=== PATIENT | male | born 1950 | race Caucasian/White ===

== ENCOUNTER 2017-06-25 05:42 | Inpatient (IN) | payer MEDICARE ==
[~2017-06-25] VITALS: Ht 188 cm; Wt 87.9 kg
[~2017-06-25 05:42] MED LIST: ADVA250A INH; AMLO10CA PO; INDA2.5T PO; TIOT1AER2 INH; ZANT150T2 PO
[2017-06-25] MEDS ORDERED: POVIDONE IODINE 5% (ANTISEPSIS KIT) 4 APPLICATIONS EACH NARE PRN (06:30)
[2017-06-25] MEDS ORDERED: METOPROLOL TARTRATE 25 MG TAB PO PRN (06:30)
[2017-06-25] MEDS ORDERED: ceFAZolin 2 GM PREMIX 50 ML IV SCH (06:30)
[2017-06-25] MEDS ORDERED: LACTATED RINGER'S 1000 ML IV PRN (06:30)
[2017-06-25] MEDS ORDERED: INSULIN HUMAN REGULAR 1,000 UNITS/10 ML VIAL SQ PRN (06:30)
[2017-06-25] MEDS ORDERED: CHLORHEXIDINE GLUCONATE 2 % 1 PACK (2 CLOTHS) TOPICAL PRN (06:30)
[2017-06-25] MEDS ORDERED: SODIUM CHLORID 0.9% 500 ML IV PRN (06:30)
[2017-06-25 07:05] LABS: AUTOMATED NEUTROPHIL # 5.5 TH/MM3 (1.8-7.7); BASOPHIL # 0.1 TH/MM3 (0-0.2); BASOPHIL % 0.9 % (0.0-2.0); EOSINOPHIL # 0.1 TH/MM3 (0-0.4); EOSINOPHIL % 1.6 % (0.0-4.0); HEMATOCRIT 44.3 % (39.0-51.0); HEMO FLAGS DIFF FINAL; LYMPH % 32.6 % (9.0-44.0); LYMPHOCYTE # 3.1 TH/MM3 (1.0-4.8); MEAN CELL VOLUME 92.6 FL (80.0-100.0); MEAN CORPUSCULAR HEMOGLOBIN 31.8 PG (27.0-34.0); MEAN CORPUSCULAR HGB CONC 34.3 % (32.0-36.0); MONO % 6.4 % (0.0-8.0); NEUT % 58.5 % (16.0-70.0); PLATELET COUNT 269 TH/MM3 (150-450); RED BLOOD COUNT 4.78 MIL/MM3 (4.50-5.90); RED CELL DISTRIBUTION WIDTH 13.4 % (11.6-17.2); WHITE BLOOD COUNT 9.4 TH/MM3 (4.0-11.0)
[2017-06-25 07:21] LABS: PROTHROMBIN TIME - PATIENT 11.4 SEC (9.8-11.6)
[2017-06-25 07:26] LABS: APTT (PATIENT) 25.4 SEC (24.3-30.1)
--- NOTE | 2017-06-25 09:53 | EKG ---
Date Performed: 06/25/2017 Time Performed: 06:25:57 PTAGE: 67 years EKG: Sinus rhythm NORMAL ECG NO PREVIOUS TRACING DOCTOR: Arie Castellanos Interpretating Date/Time 06/25/2017 09:51:44
[2017-06-25] MEDS ORDERED: ACETAMINOPHEN 1000 MG/100 ML 100 ML IV ONE (10:18)
[2017-06-25] MEDS ORDERED: ceFAZolin INJ 1,000 MG VIAL IV ONE ×4 (10:50→11:04)
[2017-06-25] MEDS ORDERED: ePHEDrine/NS 25 MG/5 ML SYR IV ONE (12:00)
[2017-06-25] MEDS ORDERED: GLYCOPYRROLATE 1 MG/5 ML SYRINGE IV PUSH ONE (12:00)
[2017-06-25] MEDS ORDERED: MORPHINE SULFATE 4 MG/ML INJ IV ONE (12:00)
[2017-06-25] MEDS ORDERED: LACTATED RINGER'S 1000 ML INJ 1,000 ML IV ONE (12:00)
[2017-06-25] MEDS ORDERED: PROPOFOL 200 MG/20 ML AMP IV ONE (12:00)
[2017-06-25] MEDS ORDERED: SODIUM CHLORID 0.9% 500 ML INJ 500 ML IV ONE (12:00)
[2017-06-25] MEDS ORDERED: NORMOSOL R INJ 1,000 ML IV ONE (12:00)
[2017-06-25] MEDS ORDERED: VECURONIUM BROMIDE 20 MG VIAL IV ONE (12:00)
[2017-06-25] MEDS: PANTOPRAZOLE SODIUM 40 MG VIAL IV PUSH SCH (12:00)
[2017-06-25] MEDS ORDERED: ONDANSETRON HCL 4 MG/2 ML VIAL IV PUSH ONE (12:00)
[2017-06-25] MEDS ORDERED: SODIUM CHLORIDE 0.9% 20 ML VIAL IV ONE (12:00)
[2017-06-25] MEDS ORDERED: LIDOCAINE HCL 1% PF 5 ML AMPULE OTHER ONE (12:00)
[2017-06-25] MEDS ORDERED: NEOSTIGMINE 3 MG/3 ML SYR IV ONE (12:00)
[2017-06-25] MEDS ORDERED: ceFAZolin 1 GM ADDVANTAGE VIAL IV ONE (12:00)
[2017-06-25] MEDS ORDERED: *morphine SULFATE 8 MG/ML PERIprocedure ONLY ONE ×3 (12:14→12:31)
[2017-06-25] MEDS: SODIUM CHLOR 0.9% 1000 ML INJ 1,000 ML IV SCH ×2 (12:25→20:00)
[2017-06-25 12:38] LABS: AUTOMATED NEUTROPHIL # 16.1 TH/MM3 (1.8-7.7); BASOPHIL % 0.1 % (0.0-2.0); EOSINOPHIL % 0.2 % (0.0-4.0); HEMATOCRIT 37.4 % (39.0-51.0); LYMPH % 9.7 % (9.0-44.0); LYMPHOCYTE # 1.8 TH/MM3 (1.0-4.8); MEAN CELL VOLUME 93.3 FL (80.0-100.0); MEAN CORPUSCULAR HEMOGLOBIN 31.3 PG (27.0-34.0); MEAN CORPUSCULAR HGB CONC 33.5 % (32.0-36.0); MONO % 5.3 % (0.0-8.0); NEUT % 84.7 % (16.0-70.0); PLATELET COUNT 240 TH/MM3 (150-450); RED BLOOD COUNT 4.01 MIL/MM3 (4.50-5.90); RED CELL DISTRIBUTION WIDTH 13.3 % (11.6-17.2)
[2017-06-25 12:47] LABS: HEMO FLAGS AUTO DIFF
--- NOTE | 2017-06-25 12:55 | MP ---
cc: STEVEN LARSON MD DATE OF SURGERY: 06/25/2017 PREOPERATIVE DIAGNOSIS Left solid 6 cm renal mass. POSTOPERATIVE DIAGNOSIS Left solid 6 cm renal mass. PROCEDURE PERFORMED Robotic-assisted laparoscopic left radical nephrectomy. SURGEON Steven Larson MD ANESTHESIA General. COMPLICATIONS Splenic laceration. ANESTHESIA General. BLOOD LOSS 200 mL. FLUIDS Crystalloids, per anesthesia. SPECIMENS Left kidney for permanent. DISPOSITION Stable to recovery. INDICATIONS The patient is a 67-year-old male who was found to have incidental left renal mass. Treatment options were discussed and he elected to proceed with laparoscopic removal of the left kidney mass. Metastatic workup was negative. The risks, benefits and alternatives were explained to the patient and the patient wished to proceed and informed consent was obtained. DETAILS OF PROCEDURE The patient was properly identified, brought back to the operating room and placed supine on the operating table. Appropriate timeout was performed. Under direction of anesthesiology the patient was intubated, induced under general anesthetic. Preop antibiotics in the form of Ancef 2 grams IV were given within 1 hour of the start of procedure. Patient was then placed in right lateral decubitus position with left side up. All pressure points were padded. Prior to positioning a Samuels catheter was inserted without difficulty. Once the patient was in the right lateral decubitus position the patient was prepped and draped in normal sterile surgical fashion. Superior and lateral umbilicus stab incision was made and Veress needle was then used to gain entrance into the abdominal cavity. Insufflation was achieved to 15 mmHg. The stab incision was extended with 15 blade scalpel. Under direct visualization the camera port was then placed in the abdominal cavity. There was no evidence of intra-abdominal injury including bleeding. There was some anterior abdominal wall adhesions up near the spleen. Four other ports were then placed under direct visualization, two 8 mm robotic circulation assistant ports which were triangulated off of the camera port as well as 12 mm assist ports along the midline, one superior and one inferior to the umbilicus. At this time the robot was then brought into position. The anterior abdominal adhesions were taken down carefully. At this time the white line of Toldt was then taken down and the colon was retracted medially to expose the retroperitoneum. The patient had minimal fat around the kidney itself. The mesentery was carefully dissected off of the kidney to further expose the retroperitoneum. The gonadal vein and ureter were easily identified inferiorly. I developed a plane between the ureter and the psoas muscle. With blunt dissection I carefully marched superiorly up the psoas muscle while natalia the kidney anteriorly. As I marched cephalad I came across a renal vein. On CT scan it appeared he had two renal veins. This appeared to be the first branch. It was dissected circumferentially and taken with endovascular GI stapler. I further marched cephalad up to the psoas muscle towards the hilum. At this time I came across multiple other renal vessels, two other renal veins and two other renal arteries were discovered, each one was dissected out circumferentially. The second renal vein was divided with the endovascular GI stapler after being carefully dissected. This helped further free the kidney itself. At this time the one branch of the renal artery was next divided with the endovascular GI stapler. At this time it appeared he had only one main renal vein left. Again, this was carefully dissected and taken with endovascular GI stapler. However, there was significant amount of tissue posterior to the kidney that was tethering the kidney to the posterior abdominal wall. With blunt dissection with the robotic vessel sealer I did discover a second artery. Once this was dissected circumferentially this was divided with endovascular GI stapler. At this point there were no remaining vessels. The lateral and superior portions of the renal attachments including the ___ were then taken with electrocautery and blunt dissection. At this point the kidney was completely freed except for the gonadal vein and ureter inferiorly, these were sealed across with the robotic vessel sealer. At this point the left kidney was completely free. It was placed in a 15 EndoCatch bag for later removal. The renal hilum and kidney bed were irrigated out. Insufflation was brought down to 7 mmHg. There was no evidence of any bleeding. 3 grams of Antonia were then carefully applied. As I carefully inspected the bed I did notice some bleeding superiorly near the spleen. As I carefully examined I had seen that there was a small 1 cm splenic laceration on the anterior portion of the spleen, likely caused from my second robotic arm. Surgicel was then applied for 5 minutes for pressure, this did slow the bleeding. At this point I decided to place ___ over the splenic laceration as well and held pressure for 3 minutes. This seemed to control the bleeding from the spleen. No other bleeding was seen. At this point we then undocked the robot. The right robotic 8 mm port incision was extended. The kidney was extracted through this incision. During extraction the epigastric vessels were divided. These were controlled with Hem-o-alphonso clips. Once the kidney was out the wound appeared to be dry. The perineum was closed with a running 3-0 Vicryl. Fascia was closed with running 1-0 PDS. I then re-insufflated the abdomen to perform a second look. The spleen itself appeared to be dry, there appeared to be no evidence of any other bleeding. The underside of the incision appeared to be free of bowel. At this time all ports were removed under direct visualization. The skin incisions were closed with 4-0 Monocryl. Sponge and needle count was correct at the end of the case. The patient was extubated and sent to recovery in stable condition. He will be admitted for routine postoperative care. MD ELLY Ball/RAMANDEEP /11:23 AM /12:06 PM MARIO ALBERTO
[2017-06-25] MEDS ORDERED: DO NOT ADM ANY ANTICOAGULANT DRUGS PRN (13:00)
--- NOTE | 2017-06-25 13:00 | RADRPT ---
EXAM DATE/TIME: 06/25/2017 12:20 [facility] COMPARISON: No previous studies available for comparison. INDICATIONS : Central line placement. MEDICAL HISTORY : None. SURGICAL HISTORY : None. ENCOUNTER: Initial ACUITY: 1 day PAIN SCORE: 0/10 LOCATION: Bilateral chest FINDINGS: A single view of the chest demonstrates the lungs to be symmetrically aerated without evidence of mas s, infiltrate or effusion. The cardiomediastinal contours are unremarkable. Osseous structures are intact. CONCLUSION: No acute disease. Right jugular central line with tip in the SVC and no pneumothorax. Josef Basurto MD on June 25, 2017 at 12:57 Board Certified Radiologist. This report was verified electronically.
[2017-06-25 13:01] LABS: BICARBONATE 24.3 MEQ/L (21.0-32.0); POTASSIUM 3.6 MEQ/L (3.5-5.1)
[2017-06-25 13:40] LABS: SCAN/DIFF AUTO DIFF CONFIRMED
[2017-06-25] MEDS: ACETAMINOPHEN 1000 MG/100 ML 100 ML IV SCH ×2 (15:41→21:38)
[2017-06-25 16:00] VITALS: BP 102/60; PULSE 67; RESP 18; TEMP 96.2; O2SAT 97
--- NOTE | 2017-06-25 17:28 | PD.CONS ---
History of Present Illness Service primary care Consult Requested By Reason for Consult medical management Primary Care Physician Tony Thibodeaux DO Diagnoses: Review of Systems Musculoskeletal: COMPLAINS OF: Back pain Past Family Social History Allergies: Coded Allergies: No Known Allergies (Unverified , 06/24/17) Past Medical History hypertension copd Past Surgical History none Reported Medications Reported Meds & Active Scripts Active Reported Zantac (Ranitidine HCl) 150 Mg Tab 150 Mg PO DAILY PRN Indapamide 2.5 Mg Tab 2.5 Mg PO DAILY Amlodipine-Benazepril 10-20 Mg Cap 1 Cap PO DAILY Advair Diskus Inh (Fluticasone-Salmeterol Inh) 250-50 Mcg/Blist Aer 1 Puff INH BID Rinse mouth after use. Spiriva Respimat Inh (Tiotropium Inh) 1.25 Mcg/Act Aero 2 Puff INH DAILY 1.25 mcg = 1 inhalation Active Ordered Medications Inpatient Medications Acetaminophen 100 ml @ 400 mls/hr Q6H IV Last administered on 06/25/17 15:41 ; Start 06/25/17 at 16:00 Amlodipine Besylate (Norvasc) 10 mg DAILY PO ; Start 06/26/17 at 09:00 Budesonide/ Formoterol Fumarate (Symbicort 160-4.5 Inh) 2 puff BID INH ; Start 06/25/17 at 21:00 Cefazolin Sodium (Ancef Inj) 1,000 mg ONCE ONCE IV Last administered on 10:40; Start 06/25/17 at 10:50; Stop 06/25/17 at 11:03; Status DC Cefazolin Sodium 1000 mg/Sodium Chloride 100 ml @ 200 mls/hr Q8H IV ; Start at 18:00 Cefazolin Sodium/ Dextrose 50 ml @ 100 mls/hr RAILCAR SWITCHER IV Last administered on 06/25/17 06:42; Start 06/25/17 at 06:30; Stop 06/28/17 at 06:29 Chlorhexidine Gluconate (Chlorhexidine 2% Cloth) 3 pack RAILCAR SWITCHER PRN TOPICAL SEE LABEL COMMENTS Last administered on 06/25/17 06:00; Start 06/25/17 at 06:30 ; Stop 06/28/17 at 06:29 Docusate Sodium (Colace) 100 mg BID PO ; Start 06/25/17 at 21:00 Indapamide (Lozol) 2.5 mg DAILY PO ; Start 06/26/17 at 09:00 Insulin Human Regular (NovoLIN R INJ) See Protocol Table ... RAILCAR SWITCHER PRN SQ SEE PROTOCOL TABLE; Start 06/25/17 at 06:30; Stop 06/28/17 at 06:29 Lactated Ringer's 1,000 ml @ 30 mls/hr Q24H PRN IV SEE LABEL COMMENTS Last administered on 06/25/17 06:40; Start 06/25/17 at 06:30; Stop 06/28/17 at 06:29 Lisinopril (Prinivil) 20 mg DAILY PO ; Start 06/26/17 at 09:00 Metoprolol Tartrate (Lopressor) 25 mg RAILCAR SWITCHER PRN PO SEE LABEL COMMENTS; Start 06/25/17 at 06:30; Stop 06/28/17 at 06:29 Miscellaneous Information ALL NURSING DEPARTME... UNSCH PRN .XX SEE LABEL COMMENTS; Start 06/25/17 at 13:00; Stop 06/26/17 at 12:59 Morphine Sulfate (Morphine Inj) 4 mg Q3H PRN IV PUSH BREAKTHROUGH PAIN; Start 06/25/17 at 11:30 Ondansetron HCl (Zofran Inj) 4 mg Q6HR PRN IV PUSH NAUSEA; Start 06/25/17 at 11 :30 Oxycodone HCl (Roxicodone) 5 mg Q4H PRN PO PAIN SCALE 4 TO 6; Start 06/25/17 at 11:30 Pantoprazole Sodium (Protonix Inj) 40 mg Q24H IV PUSH Last administered on 06/25 12:00; Start 06/25/17 at 12:00 Patient Own Medication PT OWN MED: SPIR... DAILY INH ; Start 06/26/17 at 09:00; Status Future Hold Povidone Iodine (Betadine 5% Antisepsis Kit) 1 applic RAILCAR SWITCHER PRN EACH NARE SEE LABEL COMMENTS Last administered on 06/25/17 06:45; Start 06/25/17 at 06:30 ; Stop 06/28/17 at 06:29 Sodium Chloride 1,000 ml @ 125 mls/hr Q8H IV Last administered on 06/25/17 12 :25; Start 06/25/17 at 12:00 Family History both parents are in old age Social History non smoker occ drinker Physical Exam Vital Signs Vital Signs Date Time Temp Pulse Resp B/P (MAP) Pulse Ox O2 Delivery O2 Flow Rate FiO2 06/25/17 16:00 96.2 67 18 102/60 (74) 97 06/25/17 14:00 72 16 101/63 (76) 100 Nasal Cannula 2 06/25/17 13:00 67 16 104/57 (73) 100 Nasal Cannula 2 06/25/17 12:30 65 16 108/65 (79) 100 Nasal Cannula 2 06/25/17 12:15 65 16 115/70 (85) 100 Nasal Cannula 2 06/25/17 12:00 96.9 77 16 116/71 (86) 100 Nasal Cannula 2 06/25/17 06:49 98.6 73 18 140/88 (105) 97 Physical Exam GENERAL: This is a well-nourished, well-developed patient, in no apparent distress. SKIN: No rashes, ecchymoses or lesions. Cool and dry. HEAD: Atraumatic. Normocephalic. No temporal or scalp tenderness. EYES: Pupils equal round and reactive. Extraocular motions intact. No scleral icterus. No injection or drainage. ENT: Nose without bleeding, purulent drainage or septal hematoma. Throat without erythema, tonsillar hypertrophy or exudate. Uvula midline. Airway patent. NECK: Trachea midline. No JVD or lymphadenopathy. Supple, nontender, no meningeal signs. CARDIOVASCULAR: Regular rate and rhythm without murmurs, gallops, or rubs. RESPIRATORY: Clear to auscultation. Breath sounds equal bilaterally. No wheezes , rales, or rhonchi. GASTROINTESTINAL: Abdomen soft, recent LLQ incision with multiple stab wounds present. MUSCULOSKELETAL: Extremities without clubbing, cyanosis, or edema. No joint tenderness, effusion, or edema noted. No calf tenderness. Negative Homans sign bilaterally. NEUROLOGICAL: Awake and alert. Cranial nerves II through XII intact. Motor and sensory grossly within normal limits. Five out of 5 muscle strength in all muscle groups. Normal speech. Laboratory Laboratory Tests Test 06/25/17 06:36 06/25/17 12:07 White Blood Count 9.4 19.0 Red Blood Count 4.78 4.01 Hemoglobin 15.2 12.5 Hematocrit 44.3 37.4 Mean Corpuscular Volume 92.6 93.3 Mean Corpuscular Hemoglobin 31.8 31.3 Mean Corpuscular Hemoglobin Concent 34.3 33.5 Red Cell Distribution Width 13.4 13.3 Platelet Count 269 240 Mean Platelet Volume 7.5 7.2 Neutrophils (%) (Auto) 58.5 84.7 Lymphocytes (%) (Auto) 32.6 9.7 Monocytes (%) (Auto) 6.4 5.3 Eosinophils (%) (Auto) 1.6 0.2 Basophils (%) (Auto) 0.9 0.1 Neutrophils # (Auto) 5.5 16.1 Lymphocytes # (Auto) 3.1 1.8 Monocytes # (Auto) 0.6 1.0 Eosinophils # (Auto) 0.1 0.0 Basophils # (Auto) 0.1 0.0 CBC Comment DIFF FINAL AUTO DIFF Differential Comment AUTO DIFF CONFIRMED Prothrombin Time 11.4 Prothromb Time International Ratio 1.0 Activated Partial Thromboplast Time 25.4 Blood Urea Nitrogen 15 Creatinine 1.42 Random Glucose 118 Calcium Level 8.3 Sodium Level 138 Potassium Level 3.6 Chloride Level 101 Carbon Dioxide Level 24.3 Anion Gap 13 Estimat Glomerular Filtration Rate 50 Result Diagram: 06/25/17 1207 06/25/17 1207 Imaging Last 72 hours Impressions Chest X-Ray 06/25/17 0000 Signed Impressions: Service Date/Time: Sunday, June 25, 2017 12:20 - CONCLUSION: No acute disease. Right jugular central line with tip in the SVC and no pneumothorax. Josef Basurto MD Course pt returns from l nephrectomy today Assessment and Plan Assessment and Plan l nephrectomy hypertenaion copd Discussed Condition With patieent Discharge Planning home ThibodeauxTonyLynette ALAS Jun 25, 2017 17:28
[2017-06-25] MEDS: ONDANSETRON HCL 4 MG/2 ML VIAL IV PUSH PRN (18:14)
[2017-06-25 20:24] VITALS: BP 111/65; PULSE 58; RESP 18; TEMP 95.6; O2SAT 94
[2017-06-25] MEDS: BUDESONIDE-FORMOTEROL 160/4.5 MCG INHALER INH SCH (20:30)
[2017-06-25] MEDS: DOCUSATE SODIUM 100 MG CAP PO SCH (20:32)
[2017-06-26] VITALS (9 sets, daily range): BP systolic 78–122; BP diastolic 51–65; PULSE 60–82; RESP 16–22; TEMP 96.7–98.3; O2SAT 92–97
[2017-06-26] MEDS: ACETAMINOPHEN 1000 MG/100 ML 100 ML IV SCH ×2 (04:08→08:05)
[2017-06-26] MEDS: SODIUM CHLOR 0.9% 1000 ML INJ 1,000 ML IV SCH ×5 (04:08→19:24)
[2017-06-26] MEDS: ONDANSETRON HCL 4 MG/2 ML VIAL IV PUSH PRN (07:52)
[2017-06-26] MEDS: INDAPAMIDE 2.5 MG TAB PO SCH (07:56)
[2017-06-26] MEDS: LISINOPRIL 20 MG TAB PO SCH (07:57)
[2017-06-26] MEDS: DOCUSATE SODIUM 100 MG CAP PO SCH ×2 (07:58→19:24)
[2017-06-26] MEDS: BUDESONIDE-FORMOTEROL 160/4.5 MCG INHALER INH SCH ×2 (08:04→19:25)
[2017-06-26 08:06] LABS: HEMATOCRIT 35.4 % (39.0-51.0); MEAN CELL VOLUME 93.2 FL (80.0-100.0); MEAN CORPUSCULAR HEMOGLOBIN 31.7 PG (27.0-34.0); PLATELET COUNT 181 TH/MM3 (150-450); RED CELL DISTRIBUTION WIDTH 13.2 % (11.6-17.2); REVIEW FLAG FINAL; WHITE BLOOD COUNT 7.8 TH/MM3 (4.0-11.0)
[2017-06-26 08:28] LABS: BICARBONATE 30.2 MEQ/L (21.0-32.0); POTASSIUM 3.4 MEQ/L (3.5-5.1)
[2017-06-26] MEDS ORDERED: SPIRIVA RESPIMAT INH SCH (09:00)
--- NOTE | 2017-06-26 09:52 | HHI.PR ---
Subjective Remarks S/P Robot assisted laparoscopic left nephrectomy for solid renal mass. He C/O pain meds made him "feel funny" and wants to try something different. Objective Vital Signs Date Time Temp Pulse Resp B/P (MAP) Pulse Ox O2 Delivery O2 Flow Rate FiO2 06/26/17 08:00 98.1 71 19 108/59 (75) 95 06/26/17 07:45 98.1 71 16 108/59 (75) 97 06/26/17 02:05 18 06/26/17 00:56 97.0 71 16 107/56 (73) 96 06/25/17 20:24 95.6 58 18 111/65 (80) 94 06/25/17 16:00 96.2 67 18 102/60 (74) 97 06/25/17 14:00 72 16 101/63 (76) 100 Nasal Cannula 2 06/25/17 13:00 67 16 104/57 (73) 100 Nasal Cannula 2 06/25/17 12:30 65 16 108/65 (79) 100 Nasal Cannula 2 06/25/17 12:15 65 16 115/70 (85) 100 Nasal Cannula 2 06/25/17 12:00 96.9 77 16 116/71 (86) 100 Nasal Cannula 2 I/O 06/25/17 06/25/17 06/25/17 06/26/17 06/26/17 06/26/17 07:00 15:00 23:00 07:00 15:00 23:00 Intake Total 1750 ml 300 ml 1200 ml Output Total 400 ml 1600 ml Balance 1350 ml 300 ml -400 ml Intake Oral 0 ml IV Total 50 ml 300 ml 1200 ml Other 1700 ml Output Urine Total 200 ml 1600 ml Other 200 ml Result Diagram: 06/26/1715 06/26/1715 Imaging Last 48 hours Impressions Chest X-Ray 06/25/17 0000 Signed Impressions: Service Date/Time: Sunday, June 25, 2017 12:20 - CONCLUSION: No acute disease. Right jugular central line with tip in the SVC and no pneumothorax. Josef Basurto MD Procedures Left nephrectomy Objective Remarks GEN - alert and oriented HEENT - AT LA Rersp - CTA CV - RRR without m/r/g. No peripheral edema Abd - active BS and laparoscopic incisions are intake without D/C Neuro - Alert and oriented without deficits Medications and IVs Current Medications Medications (Trade) Dose Ordered Sig/Galina Route Start Time Stop Time Status Last Admin Lactated Ringer's 1,000 ml @ 30 mls/hr Q24H PRN IV 06/25/17 06:30 06/28/17 06:29 06/25/17 06:40 Sodium Chloride 500 ml @ 30 mls/hr [id number] PRN IV 06/25/17 06:30 06/28/17 06:29 (Lopressor) 25 mg EYELET OPERATOR PRN PO 06/25/17 06:30 06/28/17 06:29 (Betadine 5% Antisepsis Kit) 1 applic EYELET OPERATOR PRN EACH NARE 06/25/17 06:30 06/28/17 06:29 06/25/17 06:45 (Chlorhexidine 2% Cloth) 3 pack EYELET OPERATOR PRN TOPICAL 06/25/17 06:30 06/28/17 06:29 06/25/17 06:00 (NovoLIN R INJ) See Protocol Table ... EYELET OPERATOR PRN SQ 06/25/17 06:30 06/28/17 06:29 Cefazolin Sodium/ Dextrose 50 ml @ 100 mls/hr EYELET OPERATOR IV 06/25/17 06:30 06/28/17 06:29 06/25/17 06:42 Sodium Chloride 1,000 ml @ 125 mls/hr Q8H IV 06/25/17 12:00 06/26/17 04:08 (Roxicodone) 10 mg Q4H PRN PO 06/25/17 12:00 06/26/17 01:05 (Roxicodone) 5 mg Q4H PRN PO 06/25/17 11:30 Acetaminophen 100 ml @ 400 mls/hr Q6H IV 06/25/17 16:00 06/26/17 08:05 (Protonix Inj) 40 mg Q24H IV PUSH 06/25/17 12:00 06/25/17 12:00 (Zofran Inj) 4 mg Q6HR PRN IV PUSH 06/25/17 11:30 06/26/17 07:52 (Morphine Inj) 4 mg Q3H PRN IV PUSH 06/25/17 11:30 Cefazolin Sodium 1000 mg/Sodium Chloride 100 ml @ 200 mls/hr Q8H IV 06/25/17 18:00 06/26/17 09:13 (Lozol) 2.5 mg DAILY PO 06/26/17 09:00 (Norvasc) 10 mg DAILY PO 06/26/17 09:00 (Symbicort 160-4.5 Inh) 2 puff BID INH 06/25/17 21:00 06/26/17 08:04 Patient Own Medication PT OWN MED: SPIR... DAILY INH 06/26/17 09:00 Future Hold (Colace) 100 mg BID PO 06/25/17 21:00 06/25/17 20:32 (Prinivil) 20 mg DAILY PO 06/26/17 09:00 Miscellaneous Information ALL NURSING DEPARTME... UNSCH PRN .XX 06/25/17 13:00 06/26/17 12:59 Assessment and Plan Problem List: (1) Renal mass, left ICD Codes: N28.89 - Other specified disorders of kidney and ureter Status: Acute Plan: Now S/P left nephrectomy (2) Hypertension ICD Codes: I10 - Essential (primary) hypertension Status: Chronic Plan: Cont home meds and monitor (3) COPD (chronic obstructive pulmonary disease) ICD Codes: J44.9 - Chronic obstructive pulmonary disease, unspecified Status: Chronic Plan: Cont home meds and monitor Assessment and Plan S/P left nephrectomy - F/U renal function HTN - Cont home meds and monitor COPD - Cont home meds and monitor Discharge Planning Home when cleared by surgery Problem Qualifiers (1) Hypertension: Qualified Codes: I10 - Essential (primary) hypertension (2) COPD (chronic obstructive pulmonary disease): Qualified Codes: J41.0 - Simple chronic bronchitis David Burnette Jun 26, 2017 09:52
[2017-06-26] MEDS ORDERED: traMADol HCL 50 MG TAB PO PRN ×2 (11:00→19:30)
[2017-06-26] MEDS: PANTOPRAZOLE SODIUM 40 MG VIAL IV PUSH SCH (11:39)
[2017-06-26] MEDS: MORPHINE SULFATE 4 MG/ML INJ IV PUSH PRN ×2 (14:25→17:56)
[2017-06-26] MEDS ORDERED: ACETAMINOPHEN/CODEINE 300 MG/30 MG TAB PO PRN (15:45)
--- NOTE | 2017-06-26 15:51 | HHI.PR ---
Subjective Patient symptoms today having issues getting pain under control. Could not tolerate Oxycodone. Tramadol not strong enough. Voiding on own. Denies flatus. Has appetite. Tolerating clears. Objective Vital Signs Vital Signs Date Time Temp Pulse Resp B/P (MAP) Pulse Ox O2 Delivery O2 Flow Rate FiO2 06/26/17 13:24 95 Nasal Cannula 2.00 06/26/17 12:00 97.3 72 17 112/60 (77) 94 06/26/17 10:50 97.3 72 17 112/60 (77) 94 06/26/17 10:00 96.7 63 80/53 (62) 93 06/26/17 10:00 96.7 60 78/51 (60) 92 06/26/17 08:00 98.1 71 19 108/59 (75) 95 06/26/17 07:45 98.1 71 16 108/59 (75) 97 06/26/17 02:05 18 06/26/17 00:56 97.0 71 16 107/56 (73) 96 06/25/17 20:24 95.6 58 18 111/65 (80) 94 06/25/17 16:00 96.2 67 18 102/60 (74) 97 Intake & Output 06/26/17 06/26/17 07:00 19:00 Intake Total 1300 ml 200 ml Output Total 1600 ml Balance -300 ml 200 ml IV Total 1300 ml 200 ml Output Urine Total 1600 ml Result Diagram: 06/26/1715 06/26/1715 Objective Remarks NAD. A/O x 3 RRR non labored respirations abd soft, ND, appropriately tender. No peritoneal signs. Ext NT no c/c/e Medications and IVs Current Medications Medications (Trade) Dose Ordered Sig/Galina Route Start Time Stop Time Status Last Admin Lactated Ringer's 1,000 ml @ 30 mls/hr Q24H PRN IV 06/25/17 06:30 06/28/17 06:29 06/25/17 06:40 Sodium Chloride 500 ml @ 30 mls/hr [id number] PRN IV 06/25/17 06:30 06/28/17 06:29 (Lopressor) 25 mg VOLTAGE INSPECTOR PRN PO 06/25/17 06:30 06/28/17 06:29 (Betadine 5% Antisepsis Kit) 1 applic VOLTAGE INSPECTOR PRN EACH NARE 06/25/17 06:30 06/28/17 06:29 06/25/17 06:45 (Chlorhexidine 2% Cloth) 3 pack VOLTAGE INSPECTOR PRN TOPICAL 06/25/17 06:30 06/28/17 06:29 06/25/17 06:00 (NovoLIN R INJ) See Protocol Table ... VOLTAGE INSPECTOR PRN SQ 06/25/17 06:30 06/28/17 06:29 Cefazolin Sodium/ Dextrose 50 ml @ 100 mls/hr VOLTAGE INSPECTOR IV 06/25/17 06:30 06/28/17 06:29 06/25/17 06:42 Sodium Chloride 1,000 ml @ 125 mls/hr Q8H IV 06/25/17 12:00 06/26/17 04:08 (Roxicodone) 10 mg Q4H PRN PO 06/25/17 12:00 06/26/17 01:05 (Roxicodone) 5 mg Q4H PRN PO 06/25/17 11:30 Acetaminophen 100 ml @ 400 mls/hr Q6H IV 06/25/17 16:00 06/26/17 08:05 (Protonix Inj) 40 mg Q24H IV PUSH 06/25/17 12:00 06/26/17 11:39 (Zofran Inj) 4 mg Q6HR PRN IV PUSH 06/25/17 11:30 06/26/17 07:52 (Morphine Inj) 4 mg Q3H PRN IV PUSH 06/25/17 11:30 06/26/17 14:25 Cefazolin Sodium 1000 mg/Sodium Chloride 100 ml @ 200 mls/hr Q8H IV 06/25/17 18:00 06/26/17 09:13 (Lozol) 2.5 mg DAILY PO 06/26/17 09:00 (Norvasc) 10 mg DAILY PO 06/26/17 09:00 (Symbicort 160-4.5 Inh) 2 puff BID INH 06/25/17 21:00 06/26/17 08:04 Patient Own Medication PT OWN MED: SPIR... DAILY INH 06/26/17 09:00 Future Hold (Colace) 100 mg BID PO 06/25/17 21:00 06/25/17 20:32 (Prinivil) 20 mg DAILY PO 06/26/17 09:00 (Ultram) 50 mg Q8HR PRN PO 06/26/17 11:00 06/26/17 12:24 Sodium Chloride 1,000 ml @ 125 mls/hr Q8H IV 06/26/17 10:00 06/26/17 11:04 Assessment and Plan Assessment and Plan POD #1 s/p Left Robotic Radical Nephrectomy -Tylenol #3 for pain -Hgb stable. -Advance diet -Creatinine up slightly as expected -Ambulate -GI/DVt prophylaxis -Appreciate Medicine input -possible d/c tomorrow Gaurav Louise MD Jun 26, 2017 15:51
[2017-06-26] MEDS ORDERED: diphenhydrAMINE HCL 25 MG CAP PO PRN (16:00)
[2017-06-26] MEDS: ACETAMINOPHEN/CODEINE 300 MG/30 MG TAB PO PRN (19:25)
[2017-06-27] VITALS: BP 128/70; PULSE 77; RESP 20; TEMP 98; O2SAT 96
[2017-06-27] MEDS: ACETAMINOPHEN/CODEINE 300 MG/30 MG TAB PO PRN ×4 (00:19→13:14)
[2017-06-27] MEDS: SODIUM CHLOR 0.9% 1000 ML INJ 1,000 ML IV SCH ×3 (02:00→09:08)
[2017-06-27 08:00] VITALS: BP 121/77; PULSE 75; RESP 12; TEMP 100.1; TEMP 98.9; O2SAT 92
[2017-06-27] MEDS: BUDESONIDE-FORMOTEROL 160/4.5 MCG INHALER INH SCH (09:05)
[2017-06-27] MEDS: INDAPAMIDE 2.5 MG TAB PO SCH (09:07)
[2017-06-27] MEDS: LISINOPRIL 20 MG TAB PO SCH (09:07)
[2017-06-27] MEDS: DOCUSATE SODIUM 100 MG CAP PO SCH (09:07)
--- NOTE | 2017-06-27 09:20 | HHI.PR ---
Subjective Remarks S/P Robot assisted laparoscopic left nephrectomy for solid renal mass. Now on Tylenol #3 with adequate pain control. Objective Vital Signs Date Time Temp Pulse Resp B/P (MAP) Pulse Ox O2 Delivery O2 Flow Rate FiO2 06/27/17 08:00 98.9 75 12 121/77 (92) 92 06/27/17 08:00 100.1 75 12 121/77 (92) 92 06/27/17 05:19 18 06/27/17 00:00 98.0 77 20 128/70 (89) 96 06/26/17 20:00 98.3 82 22 116/64 (81) 93 06/26/17 16:00 97.8 74 17 122/65 (84) 93 06/26/17 13:24 95 Nasal Cannula 2.00 06/26/17 12:00 97.3 72 17 112/60 (77) 94 06/26/17 10:50 97.3 72 17 112/60 (77) 94 06/26/17 10:00 96.7 63 80/53 (62) 93 06/26/17 10:00 96.7 60 78/51 (60) 92 I/O 06/26/17 06/26/17 06/26/17 06/27/17 06/27/17 06/27/17 07:00 15:00 23:00 07:00 15:00 23:00 Intake Total 1200 ml 200 ml 1580 ml 1580 ml Output Total 1600 ml 1200 ml 600 ml Balance -400 ml 200 ml 380 ml 980 ml Intake Oral 480 ml 480 ml IV Total 1200 ml 200 ml 1100 ml 1100 ml Output Urine Total 1600 ml 1200 ml 600 ml # Bowel Movements 0 0 Result Diagram: 06/26/1771406/26/17714 Procedures Left nephrectomy Objective Remarks GEN - alert and oriented HEENT - AT NC Rersp - CTA CV - RRR without m/r/g. No peripheral edema Abd - active BS and laparoscopic incisions are intake without D/C Neuro - Alert and oriented without deficits Medications and IVs Current Medications Medications (Trade) Dose Ordered Sig/Galina Route Start Time Stop Time Status Last Admin Lactated Ringer's 1,000 ml @ 30 mls/hr Q24H PRN IV 06/25/17 06:30 06/28/17 06:29 06/25/17 06:40 Sodium Chloride 500 ml @ 30 mls/hr [id number] PRN IV 06/25/17 06:30 06/28/17 06:29 (Lopressor) 25 mg TREAD BOOKER PRN PO 06/25/17 06:30 06/28/17 06:29 (Betadine 5% Antisepsis Kit) 1 applic TREAD BOOKER PRN EACH NARE 06/25/17 06:30 06/28/17 06:29 06/25/17 06:45 (Chlorhexidine 2% Cloth) 3 pack TREAD BOOKER PRN TOPICAL 06/25/17 06:30 06/28/17 06:29 06/25/17 06:00 (NovoLIN R INJ) See Protocol Table ... TREAD BOOKER PRN SQ 06/25/17 06:30 06/28/17 06:29 Cefazolin Sodium/ Dextrose 50 ml @ 100 mls/hr TREAD BOOKER IV 06/25/17 06:30 06/28/17 06:29 06/25/17 06:42 Sodium Chloride 1,000 ml @ 125 mls/hr Q8H IV 06/25/17 12:00 06/27/17 04:00 (Protonix Inj) 40 mg Q24H IV PUSH 06/25/17 12:00 06/26/17 11:39 (Zofran Inj) 4 mg Q6HR PRN IV PUSH 06/25/17 11:30 06/26/17 07:52 (Morphine Inj) 4 mg Q3H PRN IV PUSH 06/25/17 11:30 06/26/17 17:56 Cefazolin Sodium 1000 mg/Sodium Chloride 100 ml @ 200 mls/hr Q8H IV 06/25/17 18:00 06/27/17 09:06 (Lozol) 2.5 mg DAILY PO 06/26/17 09:00 06/27/17 09:07 (Norvasc) 10 mg DAILY PO 06/26/17 09:00 06/27/17 09:07 (Symbicort 160-4.5 Inh) 2 puff BID INH 06/25/17 21:00 06/27/17 09:05 Patient Own Medication PT OWN MED: SPIR... DAILY INH 06/26/17 09:00 Future Hold (Colace) 100 mg BID PO 06/25/17 21:00 06/27/17 09:07 (Prinivil) 20 mg DAILY PO 06/26/17 09:00 06/27/17 09:07 Sodium Chloride 1,000 ml @ 125 mls/hr Q8H IV 06/26/17 10:00 06/27/17 09:08 (Tylenol-Codeine #3) 2 tab Q4H PRN PO 06/26/17 15:45 06/27/17 09:06 (Tylenol-Codeine #3) 1 tab Q4H PRN PO 06/26/17 15:45 (Benadryl) 25 mg HS PRN PO 06/26/17 16:00 06/26/17 21:16 (Ultram) 50 mg Q8H PRN PO 06/26/17 19:30 Assessment and Plan Problem List: (1) Renal mass, left ICD Codes: N28.89 - Other specified disorders of kidney and ureter Status: Acute Plan: Now S/P left nephrectomy (2) Hypertension ICD Codes: I10 - Essential (primary) hypertension Status: Chronic Plan: Cont home meds and monitor (3) COPD (chronic obstructive pulmonary disease) ICD Codes: J44.9 - Chronic obstructive pulmonary disease, unspecified Status: Chronic Plan: Cont home meds and monitor Assessment and Plan S/P left nephrectomy - F/U renal function HTN - Cont home meds and monitor COPD - Cont home meds and monitor Discussed Condition With Patient and family Discharge Planning Per surgery. May go home today. Problem Qualifiers (1) Hypertension: Qualified Codes: I10 - Essential (primary) hypertension (2) COPD (chronic obstructive pulmonary disease): Qualified Codes: J41.0 - Simple chronic bronchitis David Burnette Jun 27, 2017 09:20
[2017-06-27 12:00] VITALS: BP 116/70; PULSE 69; RESP 16; TEMP 98.7; O2SAT 92; O2SAT 97
[2017-06-27] MEDS ORDERED: ACET-534 PO (13:02)
[2017-06-27] MEDS ORDERED: DOCU1CAP39 PO (13:02)
[2017-06-27] MEDS ORDERED: CEPH-460 PO (13:02)
[2017-06-27] MEDS: PANTOPRAZOLE SODIUM 40 MG VIAL IV PUSH SCH (13:14)
--- NOTE | 2017-06-30 12:54 | HHI.DS ---
Discharge Summary Admission Date Jun 25, 2017 at 05:42 Discharge Date: Jun 27, 2017 Admitting Diagnosis Left Renal Mass Procedures Left nephrectomy CBC/BMP: 06/26/17 0715 06/26/17 0715 Hospital Course 67 yo male with left renal mass was admitted following a Left Radical Robotic Nephrectomy. He had some pain issues the night following the operation. He could not tolerate Percocet and Tramadol was not sufficient. On POD#1, his catheter was removed and he was voiding on his own. His diet was advanced as well. His pain medication was switched to Tylenol #3 which helped with his pain. On POD #2, he was tolerating a regular diet, ambulating and pain was well controlled. He was discharged home. Pt Condition on Discharge: Good Discharge Disposition: Discharge Home Discharge Instructions DIET: Follow Instructions for: Heart Healthy Diet Activities you can perform: Shower Only-No Bath Activities to avoid: Strenuous Activity Additional Activity Instructio: no heavylifting greater than 15 lbs x 4 weeks No driving x 4 weeks New Medications: Cephalexin (Keflex) 500 Mg Cap 500 MG PO Q8H for Infection for 7 Days, #21 CAP 0 Refills Acetaminophen W/ Codeine (Acetaminophen/Codeine Carmella 300-30 mg) 300 Mg-30 Mg Tab 2 TAB PO Q4H PRN for PAIN SCALE 7 TO 10 for 5 Days, #60 TAB Docusate Sodium (Dok) 100 Mg Cap 100 MG PO BID for Constipation for 14 Days, #28 CAP Continued Medications: Amlodipine-Benazepril (Amlodipine-Benazepril) 10-20 Mg Cap 1 CAP PO DAILY for Blood Pressure Management, #30 CAP 0 Refills Fluticasone-Salmeterol Inh (Advair Diskus Inh) 250-50 Mcg/Blist Aer 1 PUFF INH BID, #1 INHALER 0 Refills Rinse mouth after use. Indapamide (Indapamide) 2.5 Mg Tab 2.5 MG PO DAILY Ranitidine (Zantac) 150 Mg Tab 150 MG PO DAILY PRN for REFLUX, #30 TAB 0 Refills Tiotropium Inh (Spiriva Respimat Inh) 1.25 Mcg/Act Aero 2 PUFF INH DAILY for Asthma Management, #1 INHALER 0 Refills 1.25 mcg = 1 inhalation Gaurav Louise MD Jun 30, 2017 12:54
== END 2017-06-27 15:36 | disposition home or self-care (01) | DRG 657 ==
LOC: HSDI 05:42 → EDSTATUS 07:30 → N07B 14:28
PROVIDERS: ADMIT Urology; ATTEND Urology
PROC: 8E0W4CZ Robotic Assisted Procedure of Trunk Region, Percutaneous Endoscopic Approach (ICD-10-PCS; 2017-06-25)
PROC: 0TT14ZZ Resection of Left Kidney, Percutaneous Endoscopic Approach (ICD-10-PCS; principal; 2017-06-25 07:31)
DX: C64.2 Malignant neoplasm of left kidney, except renal pelvis (principal); D78.11 Accidental puncture and laceration of the spleen during a procedure on the spleen; J44.9 Chronic obstructive pulmonary disease, unspecified; I10 Essential (primary) hypertension; K21.9 Gastro-esophageal reflux disease without esophagitis; Y81.3 Surgical instruments, materials and general- and plastic-surgery devices (including sutures) associated with adverse incidents; Y92.234 Operating room of hospital as the place of occurrence of the external cause
CPT/HCPCS: 71010; 76937; 80048; 85025; 85027; 85610; 85730; 86850; 86900; 86901; 86920; 88307; 93005; 94150; C9113; J0131; J0690; J2270; J2405; J2710; J3010; J7030; J7040; J7120

== ENCOUNTER 2017-06-30 12:33 | Inpatient (IN) | payer MEDICARE ==
[~2017-06-30] VITALS: Ht 188 cm; Wt 90.0 kg
[2017-06-30] VITALS (12 sets, daily range): BP systolic 59–115; BP diastolic 40–93; PULSE 69–82; RESP 18–22; TEMP 97.4–99.3; O2SAT 93–100
[~2017-06-30 12:33] MED LIST changes: +ACET-534 PO; +CEPH-460 PO; +DOCU1CAP39 PO
[2017-06-30] MEDS ORDERED: SODIUM CHLOR 0.9% 1000 ML INJ 1,000 ML IV SCH (12:44)
[2017-06-30] MEDS ORDERED: SODIUM CHLORIDE 0.9% FLUSH 5 ML FLUSH IV FLUSH PRN (12:45)
[2017-06-30 13:05] LABS: HEMATOCRIT 25.1 % (39.0-51.0); MEAN CELL VOLUME 92.6 FL (80.0-100.0); MEAN CORPUSCULAR HEMOGLOBIN 31.4 PG (27.0-34.0); MEAN CORPUSCULAR HGB CONC 33.9 % (32.0-36.0); PLATELET COUNT 245 TH/MM3 (150-450); RED BLOOD COUNT 2.71 MIL/MM3 (4.50-5.90); RED CELL DISTRIBUTION WIDTH 12.8 % (11.6-17.2); WHITE BLOOD COUNT 12.6 TH/MM3 (4.0-11.0)
[2017-06-30 13:11] LABS: HEMO FLAGS AUTO DIFF
[2017-06-30 13:22] LABS: CHLORIDE 101 MEQ/L (98-107); POTASSIUM 3.9 MEQ/L (3.5-5.1); SODIUM (NA) 135 MEQ/L (136-145)
[2017-06-30 13:26] LABS: APTT (PATIENT) 26.5 SEC (24.3-30.1); PROTHROMBIN TIME - PATIENT 11.5 SEC (9.8-11.6)
[2017-06-30 13:43] LABS: BANDS 2 % (0-6); EOSINOPHILS 1 % (0-4); NEUTROPHIL # MANUAL DIFF 10.5 TH/MM3 (1.8-7.7); POLYS (SEG NEUTROPHILS) 81 % (16-70); WBC DIFF SAMPLE 100
[2017-06-30 13:44] LABS: PLATELET ESTIMATE SMEAR NORMAL (NORMAL); PLATELET MORPHOLOGY NORMAL (NORMAL); SCAN/DIFF FINAL DIFF MANUAL
[2017-06-30 13:45] LABS: TOXIC GRANULATION 1+ (NORMAL)
[2017-06-30 13:52] LABS: ALKALINE PHOSPHATASE 38 U/L (45-117); ALT (GPT) 16 U/L (12-78); ANION GAP 8 MEQ/L (5-15); AST (GOT) 19 U/L (15-37); BICARBONATE 26.5 MEQ/L (21.0-32.0); BLOOD UREA NITROGEN 16 MG/DL (7-18); CALCIUM-PROTEIN CORRECTED 8.4 MG/DL (8.5-10.1); GLOMERULAR FILTRATION RATE 61 ML/MIN (>89); TOTAL BILIRUBIN ADULT 0.5 MG/DL (0.2-1.0)
--- NOTE | 2017-06-30 13:52 | RADRPT ---
EXAM DATE/TIME: 06/30/2017 13:15 [facility] COMPARISON: CHEST SINGLE AP, June 25, 2017, 12:20. INDICATIONS : Low blood pressure MEDICAL HISTORY : None. SURGICAL HISTORY : None. ENCOUNTER: Initial ACUITY: 1 day PAIN SCORE: 0/10 LOCATION: Bilateral chest FINDINGS: A single view of the chest demonstrates the lungs to be symmetrically aerated without evidence of mas s, infiltrate or effusion. The cardiomediastinal contours are unremarkable. Osseous structures are intact. CONCLUSION: 1. No acute abnormality or significant interval change. Oli Cole MD on June 30, 2017 at 13:50 Board Certified Radiologist. This report was verified electronically.
--- NOTE | 2017-06-30 14:02 | RADRPT ---
EXAM DATE/TIME: 06/30/2017 13:34 [facility] COMPARISON: No previous studies available for comparison. INDICATIONS : Altered mental status. RADIATION DOSE: 57.21 CTDIvol (mGy) MEDICAL HISTORY : Hypertension. Chronic obstructive pulmonary disease. Left renal tumor. SURGICAL HISTORY : Nephrectomy, left. ENCOUNTER: Initial ACUITY: 1 day PAIN SCALE: 0/10 LOCATION: cranial TECHNIQUE: Multiple contiguous axial images were obtained of the head. Using automated exposure control and adj ustment of the mA and/or kV according to patient size, radiation dose was kept as low as reasonably a chievable to obtain optimal diagnostic quality images. DICOM format image data is available electro nically for review and comparison. FINDINGS: CEREBRUM: The ventricles are normal for age. No evidence of midline shift, mass lesion, hemorrhage or acute in farction. No extra-axial fluid collections are seen. POSTERIOR FOSSA: The cerebellum and brainstem are intact. The 4th ventricle is midline. The cerebellopontine angle i s unremarkable. EXTRACRANIAL: The visualized portion of the orbits is intact. SKULL: The calvaria is intact. No evidence of skull fracture. CONCLUSION: 1. No acute intracranial abnormality. Oli Cole MD on June 30, 2017 at 13:59 Board Certified Radiologist. This report was verified electronically.
--- NOTE | 2017-06-30 14:38 | RADRPT ---
EXAM DATE/TIME: 06/30/2017 13:37 [facility] COMPARISON: No previous studies available for comparison. INDICATIONS : Diffuse abdominal pain. status post left nephrectomy one week ago. ORAL CONTRAST: No oral contrast ingested. RADIATION DOSE: 12.39 CTDIvol (mGy) MEDICAL HISTORY : Hypertension. Chronic obstructive pulmonary disease. SURGICAL HISTORY : Nephrectomy, left. ENCOUNTER: Initial ACUITY: 1 week PAIN SCALE: 5/10 LOCATION: abdomen TECHNIQUE: Volumetric scanning of the abdomen and pelvis was performed. Using automated exposure control and ad justment of the mA and/or kV according to patient size, radiation dose was kept as low as reasonably achievable to obtain optimal diagnostic quality images. DICOM format image data is available electro nically for review and comparison. FINDINGS: LOWER LUNGS: Minimal left basilar atelectasis. LIVER: Homogeneous density without lesion. There is no dilation of the biliary tree. Gallbladder is mildly distended with probable small amount layering sludge. SPLEEN: A normal spleen is not identified. There is a large hematoma in the region of the spleen measuring 11 .5 x 11.3 x 14.2 cm. This is consistent with large intraparenchymal splenic hemorrhage. PANCREAS: Within normal limits. KIDNEYS: Left kidney is surgically absent. Right kidney is grossly unremarkable without evidence for hydroneph rosis. ADRENAL GLANDS: Within normal limits. VASCULAR: There is no aortic aneurysm. BOWEL/MESENTERY: Small to moderate amount of scattered foci of free air consistent in the upper limits of expected on postop day #7. There is a moderate amount of hemoperitoneum. ABDOMINAL WALL: Extensive subcutaneous emphysema. RETROPERITONEUM: There is no lymphadenopathy. BLADDER: No wall thickening or mass. REPRODUCTIVE: Within normal limits. INGUINAL: Small bilateral fat-containing inguinal hernias. MUSCULOSKELETAL: Within normal limits for patient age. CONCLUSION: 1. Abnormal examination. Large intraparenchymal splenic hemorrhage with moderate hemoperitoneum. Cons ider CTA examination to evaluate for active hemorrhage as clinically warranted. 2. Status post left nephrectomy with upper limits of normal for postop day #7 postoperative free air and subcutaneous emphysema. Findings were personally discussed with Dr. Bee. Oli Cole MD on June 30, 2017 at 14:01 Board Certified Radiologist. This report was verified electronically.
[2017-06-30] MEDS ORDERED: SODIUM CHLOR 0.9% 250 ML INJ 250 ML IV ONE (14:45)
--- NOTE | 2017-06-30 14:46 | PD ---
HPI Chief Complaint: Dizziness Time Seen by Provider: 12:43 Travel History International Travel<30 days: No Contact w/Intl Traveler<30days: No Traveled to known affect area: No History of Present Illness HPI PATIENT HAD A ROBOTIC NEPHRECTOMY BY DR AUSTIN AND HAS HAD EPISODES OF LIGHTHEADEDNESS/DIZZINESS AND NEAR SYNCOPE PER DESCRIPTION...HIS LAST HB WAS 11 WHEN DISCHARGED OVER THE WEEKEND PATIENT HAD 2 MORE EPISODES AND DECIDED TO COME IN TODAY FOR FURTHER EVALUATION. BIOPSY STILL PENDING TO SEE IF IT IS RENAL CELL CA H/O COPD, HTN PCP IS DR LUNA [facility] Past Medical History Asthma: Yes Cancer: Yes (UNKNOWN TO KIDNEY) Cardiovascular Problems: No COPD: Yes Diabetes: No Endocrine: No Gastrointestinal Disorders: Yes Hepatitis: No Hiatal Hernia: No Hypertension: Yes Immune Disorder: No Musculoskeletal: No Neurologic: No Psychiatric: No Respiratory: Yes (ASTHMA, COPD) Thyroid Disease: No Past Surgical History AICD: No Joint Replacement: No Pacemaker: No Other Surgery: Yes (KIDNEY REMOVED) Social History Alcohol Use: No Tobacco Use: No Substance Use: No Allergies-Medications (Allergen,Severity, Reaction): Coded Allergies: No Known Allergies (Unverified , 06/30/17) Reported Meds & Prescriptions Reported Meds & Active Scripts Active Keflex (Cephalexin) 500 Mg Cap 500 Mg PO Q8H 7 Days Dok (Docusate Sodium) 100 Mg Cap 100 Mg PO BID 14 Days Acetaminophen/Codeine Carmella 300-30 mg (Acetaminophen W/ Codeine) 300 Mg-30 Mg Tab 2 Tab PO Q4H PRN 5 Days Reported Zantac (Ranitidine HCl) 150 Mg Tab 150 Mg PO DAILY PRN Indapamide 2.5 Mg Tab 2.5 Mg PO DAILY Amlodipine-Benazepril 10-20 Mg Cap 1 Cap PO DAILY Advair Diskus Inh (Fluticasone-Salmeterol Inh) 250-50 Mcg/Blist Aer 1 Puff INH BID Rinse mouth after use. Spiriva Respimat Inh (Tiotropium Inh) 1.25 Mcg/Act Aero 2 Puff INH DAILY 1.25 mcg = 1 inhalation Review of Systems Except as stated in HPI: all other systems reviewed are Neg HENT: Positive: Lightheadedness Cardiovascular: Positive: Syncope Physical Exam Narrative GENERAL: SKIN: Warm and dry. AREA OF SURGICAL SITE ARE NEG FOR INFECTION HEAD: Atraumatic. Normocephalic. EYES: Pupils equal and round. No scleral icterus. No injection or drainage. ENT: No nasal bleeding or discharge. Mucous membranes pink and moist. NECK: Trachea midline. No JVD. CARDIOVASCULAR: Regular rate and rhythm. RESPIRATORY: No accessory muscle use. Clear to auscultation. Breath sounds equal bilaterally. GASTROINTESTINAL: Abdomen soft, MILDLY TTP OVER LUQ AREA, nondistended. MUSCULOSKELETAL: Extremities without clubbing, cyanosis, or edema. No obvious deformities. NEUROLOGICAL: Awake and alert. No obvious cranial nerve deficits. Motor grossly within normal limits. Five out of 5 muscle strength in the arms and legs. Normal speech. PSYCHIATRIC: Appropriate mood and affect; insight and judgment normal. Data Data Last Documented VS Orders Orders Electrocardiogram (06/30/17 12:44) Complete Blood Count With Diff (06/30/17 12:44) Comprehensive Metabolic Panel (06/30/17 12:44) Prothrombin Time / Inr (Pt) (06/30/17 12:44) Act Partial Throm Time (Ptt) (06/30/17 12:44) Troponin I (06/30/17 12:44) Urinalysis - C+S If Indicated (06/30/17 12:44) Lactic Acid Sepsis Protocol (06/30/17 12:44) Blood Culture (06/30/17 12:44) Chest, Single Ap (06/30/17 12:44) Ct Brain W/O Iv Contrast(Rout) (06/30/17 12:44) Blood Glucose (06/30/17 12:44) Ecg Monitoring (06/30/17 12:44) Iv Access Insert/Monitor (06/30/17 12:44) Oximetry (06/30/17 12:44) Sodium Chloride 0.9% Flush (Ns Flush) (06/30/17 12:45) Sodium Chlor 0.9% 1000 Ml Inj (Ns 1000 M (06/30/17 12:44) Ct Abd/Pel W/O Iv Contrast (06/30/17 12:44) Blood Product Administration (06/30/17 14:31) Sodium Chlor 0.9% 250 Ml Inj (Ns 250 Ml (06/30/17 14:45) Admit Order (Ed Use Only) (06/30/17 14:33) Labs Laboratory Tests Test 06/30/17 12:50 06/30/17 12:55 White Blood Count 12.6 TH/MM3 Red Blood Count 2.71 MIL/MM3 Hemoglobin 8.5 GM/DL Hematocrit 25.1 % Mean Corpuscular Volume 92.6 FL Mean Corpuscular Hemoglobin 31.4 PG Mean Corpuscular Hemoglobin Concent 33.9 % Red Cell Distribution Width 12.8 % Platelet Count 245 TH/MM3 Mean Platelet Volume 7.3 FL CBC Comment AUTO DIFF Differential Total Cells Counted 100 Neutrophils % (Manual) 81 % Band Neutrophils % 2 % Lymphocytes % 14 % Monocytes % 2 % Eosinophils % 1 % Neutrophils # (Manual) 10.5 TH/MM3 Differential Comment FINAL DIFF MANUAL Toxic Granulation 1+ Platelet Estimate NORMAL Platelet Morphology Comment NORMAL Prothrombin Time 11.5 SEC Prothromb Time International Ratio 1.0 RATIO Activated Partial Thromboplast Time 26.5 SEC Blood Urea Nitrogen 16 MG/DL Creatinine 1.20 MG/DL Random Glucose 138 MG/DL Total Protein 5.3 GM/DL Albumin 2.3 GM/DL Calcium Level 7.4 MG/DL Alkaline Phosphatase 38 U/L Aspartate Amino Transf (AST/SGOT) 19 U/L Alanine Aminotransferase (ALT/SGPT) 16 U/L Total Bilirubin 0.5 MG/DL Sodium Level 135 MEQ/L Potassium Level 3.9 MEQ/L Chloride Level 101 MEQ/L Carbon Dioxide Level 26.5 MEQ/L Anion Gap 8 MEQ/L Estimat Glomerular Filtration Rate 61 ML/MIN Protein Corrected Calcium 8.4 MG/DL Troponin I LESS THAN 0.02 NG/ML Lactic Acid Level 2.3 mmol/L MDM Medical Decision Making Medical Screen Exam Complete: Yes Emergency Medical Condition: Yes Medical Record Reviewed: Yes Interpretation(s) NSR 68, NL INTERVALS, NO STEMI PATTERN Differential Diagnosis SYNCOPE V ANEMIA V DEHYDRATIONI V POST OP COMPLICATION V INTRAABDOMINAL INJURY Narrative Course CASE DISCUSSED WITH DR LARSON WHO REQUESTED TRANSFER TO [facility] AND TO D/W GENERAL SURGEON, DISCUSSED WITH DR DEL ANGEL WHO IS AWARE OF PATIENT AND THE POSSIBLE NEED FOR SPLENECTOMY. DR LUNA MADE AWARE WELL. CURRENTLY AWAITING WAISTLINE JOINER LOCKSTITCH CALL BACK....IVF BOLUS GIVEN AND 4 UNITS EMERGENCY BLOOD RELEASE ALSO STARTED AND EMERGENCY TRANSFER TO [facility] [place] Care Narrative CRITICAL CARE NOTE: With evaluation of the patient, labs, EKG, receipt of radiologic studies, administration of medications, reevaluation the patient and discussion of the patient with the admitting physicians, the total critical care time was [60] minutes. Time to perform other separately billable procedures was not included in the critical care time. Diagnosis Primary Impression: SPLENIC LACERATION POST NEPHRECTOMY Additional Impression: Symptomatic anemia Admitting Information Admitting Physician Requests: Admit Roe Bee MD Jun 30, 2017 14:46
[2017-06-30 14:58] LABS: LACTIC ACID GHOST NOT REPORTABLE
--- NOTE | 2017-06-30 16:03 | EKG ---
Date Performed: 06/30/2017 Time Performed: 12:55:50 PTAGE: 67 years EKG: Sinus rhythm Compared to prior tracing no significant change NORMAL ECG INTERPRETATION BASED ON A DEFAULT AGE OF 40 YEARS PREVIOUS TRACING : 06/25/2017 06.25 DOCTOR: Levi Dorantes Interpretating Date/Time 06/30/2017 16:02:05
--- NOTE | 2017-06-30 16:50 | HHI.HP ---
[facility] Service Critical Care Medicine Primary Care Physician Tony Thibodeaux, DO Admission Diagnosis SPLENIC LAC Diagnosis: (1) Acute blood loss anemia Diagnosis: Principal (2) Gastroesophageal reflux disease Diagnosis: Principal (3) Leukocytosis Diagnosis: Principal (4) Clear cell carcinoma of kidney Diagnosis: Principal (5) COPD (chronic obstructive pulmonary disease) Diagnosis: Principal (6) Hypertension Diagnosis: Principal (7) Symptomatic anemia Diagnosis: Principal Chief Complaint: Dizzy/lightheaded Travel History International Travel<30 Days: No Contact w/Intl Traveler <30 Da: No Traveled to Known Affected Are: No History of Present Illness This is a 67-year-old male. Date of admission 06/30/2017. 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 This is from 06/25. Results was a clear cell carcinoma pT1b, Nx Mx, patient presented [place] today complaining of lightheadedness and dizziness. He is also noted to have left shoulder pain. Patient was noted to be hypotensive with systolic blood pressure in the 50s. Denied with significant abdominal pain. Head CT revealed no acute intracranial findings. CT of the abdomen/ pelvis revealed a intraparenchymal splenic hematoma 11.5 x 11.3 x 14.2 cm. Hemoglobin 8. Surgery and urology were consulted. We are asked to admit the patient in ISC Patient has received 4 units PRBC stat. Patient's been seen by Dr. Bagley. Recommended conservative therapy with serial hemoglobins. Will be available to comes acutely hypotensive overnight. Review of Systems ROS Limitations: Language Barrier Constitutional: COMPLAINS OF: Fatigue, DENIES: Fever, Weight gain Endocrine: DENIES: Polydipsia, Polyuria Eyes: DENIES: Blurred vision Ears, nose, mouth, throat: DENIES: Tinnitus Respiratory: DENIES: Apneas Cardiovascular: COMPLAINS OF: Syncope, DENIES: Chest pain Gastrointestinal: DENIES: Bloody stools, Constipation, Diarrhea, Nausea, Vomiting Genitourinary: DENIES: Urgency Musculoskeletal: DENIES: Joint pain, Muscle aches Integumentary: DENIES: Abnormal pigmentation Hematologic/lymphatic: DENIES: Bruising Immunologic/allergic: DENIES: Eczema Neurologic: COMPLAINS OF: Poor Balance, DENIES: Abnormal gait Psychiatric: DENIES: Anxiety, Confusion Past Family Social History Allergies: Coded Allergies: No Known Allergies (Unverified , 06/30/17) Past Medical History Asthma/COPD Gastroesophageal reflux disease Hypertension Past Surgical History Left nephrectomy Reported Medications Keflex (Cephalexin) 500 Mg Cap 500 Mg PO Q8H 7 Days Dok (Docusate Sodium) 100 Mg Cap 100 Mg PO BID 14 Days Acetaminophen/Codeine Carmella 300-30 mg (Acetaminophen W/ Codeine) 300 Mg-30 Mg Tab 2 Tab PO Q4H PRN 5 Days Reported Zantac (Ranitidine HCl) 150 Mg Tab 150 Mg PO DAILY PRN Indapamide 2.5 Mg Tab 2.5 Mg PO DAILY Amlodipine-Benazepril 10-20 Mg Cap 1 Cap PO DAILY Advair Diskus Inh (Fluticasone-Salmeterol Inh) 250-50 Mcg/Blist Aer 1 Puff INH BID Rinse mouth after use. Spiriva Respimat Inh (Tiotropium Inh) 1.25 Mcg/Act Aero 2 Puff INH DAILY 1.25 mcg = 1 inhalation Active Ordered Medications Reviewed in EMR Family History Mother and father both of old age. Social History No tobacco use. Occasional Alcohol use. No IV drug use. Physical Exam Vital Signs Vital Signs Date Time Temp Pulse Resp B/P (MAP) Pulse Ox O2 Delivery O2 Flow Rate FiO2 06/30/17 15:03 97.5 69 20 59/40 100 06/30/17 14:40 71 20 90/69 (76) 100 06/30/17 14:24 82 20 80/62 (68) 100 06/30/17 13:47 77 18 92/58 (69) 94 06/30/17 12:58 96 06/30/17 12:35 97.4 74 20 86/58 (67) 100 Physical Exam GENERAL: 67-year-old male, critically ill currently resting in bed in no acute distress SKIN: Warm and dry. HEAD: Atraumatic. Normocephalic. EYES: Pupils equal and round about 3 mm bilaterally and reactive. No scleral icterus. No injection or drainage. ENT: No nasal bleeding or discharge. Mucous membranes pink and moist. NECK: Trachea midline. No JVD. CARDIOVASCULAR: Regular rate and rhythm. S1, S2. No S4. Without murmur RESPIRATORY: No accessory muscle use. Clear to auscultation. Breath sounds equal bilaterally. GASTROINTESTINAL: Abdomen soft, non-tender, protuberant. 4 Prior trocar scars midline and left upper quadrant are clean dry and intact.. MUSCULOSKELETAL: Extremities without significant peripheral edema. No obvious deformities. NEUROLOGICAL: Awake and alert. No obvious cranial nerve deficits. Motor grossly within normal limits. Five out of 5 muscle strength in the arms and legs. Normal speech. PSYCHIATRIC: Appropriate mood and affect; insight and judgment normal. Laboratory Laboratory Tests Test 06/30/17 12:50 06/30/17 12:55 White Blood Count 12.6 Red Blood Count 2.71 Hemoglobin 8.5 Hematocrit 25.1 Mean Corpuscular Volume 92.6 Mean Corpuscular Hemoglobin 31.4 Mean Corpuscular Hemoglobin Concent 33.9 Red Cell Distribution Width 12.8 Platelet Count 245 Mean Platelet Volume 7.3 CBC Comment AUTO DIFF Differential Total Cells Counted 100 Neutrophils % (Manual) 81 Band Neutrophils % 2 Lymphocytes % 14 Monocytes % 2 Eosinophils % 1 Neutrophils # (Manual) 10.5 Differential Comment FINAL DIFF MANUAL Toxic Granulation 1+ Platelet Estimate NORMAL Platelet Morphology Comment NORMAL Prothrombin Time 11.5 Prothromb Time International Ratio 1.0 Activated Partial Thromboplast Time 26.5 Blood Urea Nitrogen 16 Creatinine 1.20 Random Glucose 138 Total Protein 5.3 Albumin 2.3 Calcium Level 7.4 Alkaline Phosphatase 38 Aspartate Amino Transf (AST/SGOT) 19 Alanine Aminotransferase (ALT/SGPT) 16 Total Bilirubin 0.5 Sodium Level 135 Potassium Level 3.9 Chloride Level 101 Carbon Dioxide Level 26.5 Anion Gap 8 Estimat Glomerular Filtration Rate 61 Protein Corrected Calcium 8.4 Troponin I LESS THAN 0.02 Lactic Acid Level 2.3 Date/Time Source Procedure Growth Status 06/30/17 12:55 Blood Peripheral Aerobic Blood Culture Pending Received 06/30/17 12:55 Blood Peripheral Anaerobic Blood Culture Pending Received Result Diagram: 06/30/17 1250 06/30/17 1250 Imaging Last [address] 06/30/17 1244 Signed Impressions: Service Date/Time: Friday, June 30, 2017 13:34 - CONCLUSION: 1. No acute intracranial abnormality. Oli Cole MD Chest X-Ray 06/30/17 1244 Signed Impressions: Service Date/Time: Friday, June 30, 2017 13:15 - CONCLUSION: 1. No acute abnormality or significant interval change. Oli Cole MD Abdomen/Pelvis CT 06/30/17 1244 Signed Impressions: Service Date/Time: Friday, June 30, 2017 13:37 - CONCLUSION: 1. Abnormal examination. Large intraparenchymal splenic hemorrhage with moderate hemoperitoneum. Consider CTA examination to evaluate for active hemorrhage as clinically warranted. 2. Status post left nephrectomy with upper limits of normal for postop day #7 postoperative free air and subcutaneous emphysema. Findings were personally discussed with Dr. Bee. MD Torres Isaac VTE Risk Assessment Torres VTE Risk Assessment: Mod/High Risk (score >= 2) Caprini Risk Assessment Model Point Value = 1 Point Value = 2 Point Value = 3 Point Value = 5 Age 41-60 Minor surgery BMI > 25 kg/m2 Swollen legs Varicose veins or History of unexplained or recurrent spontaneous Oral contraceptives or hormone replacement Sepsis (< 1 month) Serious lung disease, including pneumonia (< 1 month) Abnormal pulmonary function Acute myocardial infarction Congestive heart failure (< 1 month) History of inflammatory bowel disease Medical patient at bed rest Age 61-74 Arthroscopic surgery Major open surgery (> 45 min) Laparoscopic surgery (> 45 min) Malignancy Confined to bed (> 72 hours) Immobilizing plaster cast Central venous access Age >= 75 History of VTE Family history of VTE Factor V Leiden Prothrombin [id number] Lupus anticoagulant Anticardiolipin antibodies Elevated serum homocysteine Heparin-induced thrombocytopenia Other congenital or acquired thrombophilia Stroke (< 1 month) Elective arthroplasty Hip, pelvis, or leg fracture Acute spinal cord injury (< 1 month) Prophylaxis Regimen Total Risk Factor Score Risk Level Prophylaxis Regimen 0-1 Low Early ambulation 2 Moderate Order ONE of the following: *Sequential Compression Device (SCD) *Heparin 5000 units SQ BID 3-4 Higher Order ONE of the following medications: *Heparin 5000 units SQ TID *Enoxaparin/Lovenox 40 mg SQ daily (WT < 150 kg, CrCl > 30 mL/min) *Enoxaparin/Lovenox 30 mg SQ daily (WT < 150 kg, CrCl > 10-29 mL/min) *Enoxaparin/Lovenox 30 mg SQ BID (WT < 150 kg, CrCl > 30 mL/min) AND/OR *Sequential Compression Device (SCD) 5 or more Highest Order ONE of the following medications: *Heparin 5000 units SQ TID (Preferred with Epidurals) *Enoxaparin/Lovenox 40 mg SQ daily (WT < 150 kg, CrCl > 30 mL/min) *Enoxaparin/Lovenox 30 mg SQ daily (WT < 150 kg, CrCl > 10-29 mL/min) *Enoxaparin/Lovenox 30 mg SQ BID (WT < 150 kg, CrCl > 30 mL/min) AND *Sequential Compression Device (SCD) Assessment and Plan Assessment and Plan Neuro/Psych: Acetaminophen for fever [place]/morphine for pain management CV: Hypertension Lactate 2.3 Currently holding amlodipine/benazepril 10/20 one tablet twice a day for hypertension. Holding indapamide 2.5 mill grams by mouth daily Currently normal saline at 84 cc an hour. EKG revealed normal sinus rhythm. Normal MI, QRS and QT intervals. Resp: COPD/asthma Nasal cannula to maintain saturations greater than or equal to 92% Incentive spirometry while awake Currently in fluticasone/salmeterol 250/50 one inhalation twice a day and tiotropium 1 inhalation daily. GI: Large left splenic intraparenchymal hematoma Hypoalbuminemia Evaluated by Dr. Bagley/general surgery and Dr. Louise/urology. No plans for surgical intervention at the present time. Serial hemoglobins every 6 hours : No indication for Samuels catheter Endo: Sliding-scale insulin if indicated to maintain euglycemia Renal: Clear cell carcinoma pT1x. Nx, Mx Status post robot-assisted left nephrectomy Dr. Louise consulted. Conservative management the present time. Creatinine currently within normal limits Monitor urine output Accurate I's and O's Heme: Acute blood loss anemia Leukocytosis Transfused 4 units PRBCs Serial hemoglobins every 6 hours ID: Previously on cephalexin Monitor for infection MSK: PT evaluate and treat FEN: Hyponatremia Replace electrolytes as clinically indicated Access - Utilize peripheral IV. Central line if indicated Prophylaxis - GI - pantoprazole - DVT - SCD/holding pharmacological prophylaxis in light of large splenic hematoma Level III admission Code Status Full code Discussed Condition With Patient. Dr. Bagley. Care plan discussed and all questions answered. Problem Qualifiers (1) Leukocytosis: Qualified Codes: D72.829 - Elevated white blood cell count, unspecified (2) Clear cell carcinoma of kidney: Qualified Codes: C64.2 - Malignant neoplasm of left kidney, except renal pelvis (3) COPD (chronic obstructive pulmonary disease): (4) Hypertension: Qualified Codes: I10 - Essential (primary) hypertension Erick Burt MD Jun 30, 2017 16:50
[2017-06-30] MEDS ORDERED: CHLORHEXIDINE GLUCONATE 2 % 1 PACK (2 CLOTHS) TOP PRN (17:00)
[2017-06-30] MEDS ORDERED: SENNOSIDES 8.6 MG TAB PO PRN (17:00)
[2017-06-30] MEDS ORDERED: BISACODYL 10 MG SUPP RECTAL PRN (17:00)
[2017-06-30] MEDS ORDERED: MISCELLANEOUS NURSING INFORMATION XX SCH (17:00)
[2017-06-30] MEDS ORDERED: SODIUM CHLORIDE 0.9% FLUSH 10 ML FLUSH IV FLUSH PRN (17:00)
[2017-06-30] MEDS ORDERED: ACETAMINOPHEN 325 MG TAB PO PRN (17:00)
[2017-06-30] MEDS ORDERED: RESP: ALBUTEROL 2.5 MG/3 ML NEB (PRN) INH (17:00)
--- NOTE | 2017-06-30 17:07 | PD.CONS ---
HPI Service General Surgery Consult Requested By Reason for Consult Splenic hematoma Primary Care Physician Tony Thibodeaux DO History of Present Illness 67 yo M underwent robot assisted left nephrectomy on 06/26/17 with episode of presyncope and nausea yesterday which recurred this morning. He presented to the emergency department with these complaints and was noted to have a hemoglobin of 8.5 and hypotension. He has had left shoulder pain as well. The patient was emergently transfused 2 units of emergency release packed red blood cells followed by another 2 units. Currently he is normotensive. He is comfortably lying in bed with his at the bedside. He denies heart disease. Review of Systems Constitutional: DENIES: Fever, Chills Eyes: DENIES: Eye inflammation, Eye pain Ears, nose, mouth, throat: DENIES: Throat pain, Hoarseness Respiratory: DENIES: Cough, Shortness of breath Cardiovascular: DENIES: Chest pain, Palpitations Gastrointestinal: DENIES: Abdominal pain, Vomiting Integumentary: DENIES: Pruritus, Rash Neurologic: DENIES: Paresthesias, Seizures Past Family Social History Past Medical History Asthma/COPD Gastroesophageal reflux disease Hypertension Past Surgical History Robot-assisted left nephrectomy Reported Medications Reported Meds & Active Scripts Active Keflex (Cephalexin) 500 Mg Cap 500 Mg PO Q8H 7 Days Dok (Docusate Sodium) 100 Mg Cap 100 Mg PO BID 14 Days Acetaminophen/Codeine Carmella 300-30 mg (Acetaminophen W/ Codeine) 300 Mg-30 Mg Tab 2 Tab PO Q4H PRN 5 Days Reported Zantac (Ranitidine HCl) 150 Mg Tab 150 Mg PO DAILY PRN Indapamide 2.5 Mg Tab 2.5 Mg PO DAILY Amlodipine-Benazepril 10-20 Mg Cap 1 Cap PO DAILY Advair Diskus Inh (Fluticasone-Salmeterol Inh) 250-50 Mcg/Blist Aer 1 Puff INH BID Rinse mouth after use. Spiriva Respimat Inh (Tiotropium Inh) 1.25 Mcg/Act Aero 2 Puff INH DAILY 1.25 mcg = 1 inhalation Allergies: Coded Allergies: No Known Allergies (Unverified , 06/30/17) Active Ordered Medications Current Medications Medications (Trade) Dose Ordered Sig/[place] Route Start Time Stop Time Status Last Admin (NS Flush) 2 ml UNSCH PRN IV FLUSH 06/30/17 12:45 Sodium Chloride 250 ml @ 15 mls/hr ONCE ONCE IV 06/30/17 14:45 07/01/17 07:24 Sodium Chloride 1,000 ml @ 84 mls/hr [id number] IV 06/30/17 16:50 UNV (NS Flush) 2 ml UNSCH PRN IV FLUSH 06/30/17 17:00 UNV (NS Flush) 2 ml BID IV FLUSH 06/30/17 21:00 UNV (Tylenol) 650 mg Q6H PRN PO 06/30/17 17:00 UNV ([place] 5-325 Mg) 1 tab Q4H PRN PO 06/30/17 17:00 UNV (Morphine Inj) 2 mg Q2H PRN IV PUSH 06/30/17 17:00 UNV (Protonix Inj) 40 mg DAILY IV PUSH 07/01/17 09:00 UNV (Zofran Inj) 4 mg Q6H PRN IV PUSH 06/30/17 17:00 UNV (Duoneb Neb) 1 ampule Q6HR NEB INH 06/30/17 22:00 UNV (Albuterol Neb) 2.5 mg Q2HR NEB PRN INH 06/30/17 17:00 UNV Miscellaneous Information 1 Q361D XX 06/30/17 17:00 UNV (Chlorhexidine 2% Cloth) 3 pack Taper DAILY@04 TOP 07/01/17 04:00 06/27/18 03:59 UNV (Chlorhexidine 2% Cloth) 3 pack UNSCH PRN TOP 06/30/17 17:00 UNV (Elaine-Colace) 1 tab BID PO 06/30/17 21:00 UNV (Milk Of Magnesia Liq) 30 ml Q12H PRN PO 06/30/17 17:00 UNV (Senokot) 17.2 mg Q12H PRN PO 06/30/17 17:00 UNV (Dulcolax Supp) 10 mg DAILY PRN RECTAL 06/30/17 17:00 UNV (Lactulose Liq) 30 ml DAILY PRN PO 06/30/17 17:00 UNV (Peridex 0.12% Liq) 15 ml BID@08,20 MT 06/30/17 20:00 UNV Non-Formulary Medication 1 puff BID INH 06/30/17 21:00 UNV Non-Formulary Medication 2 puff DAILY INH 07/01/17 09:00 UNV Family History Noncontributory Social History Occasional alcohol use. No tobacco or drug use. Physical Exam Vital Signs Vital Signs Date Time Temp Pulse Resp B/P (MAP) Pulse Ox O2 Delivery O2 Flow Rate FiO2 06/30/17 15:03 97.5 69 20 59/40 100 06/30/17 14:40 71 20 90/69 (76) 100 06/30/17 14:24 82 20 80/62 (68) 100 06/30/17 13:47 77 18 92/58 (69) 94 06/30/17 12:58 96 06/30/17 12:35 97.4 74 20 86/58 (67) 100 Physical Exam GENERAL: Awake and alert. No acute distress. Cooperative. Obese HEAD: Normocephalic. Atraumatic. EYES: Pupils equal round and reactive to light bilaterally. No scleral icterus. ENT: Moist oral mucosa. NECK: Trachea midline. CHEST: Lungs clear to auscultation bilaterally with no wheezing or rhonchi. No respiratory distress. CARDIOVASCULAR: Regular rate and rhythm. ABDOMEN: Incisions are clean dry and intact. Mild distention. Nontender and soft. EXTREMITIES: No cyanosis or edema. SKIN: Warm, dry, nonjaundiced. Laboratory Laboratory Tests Test 06/30/17 12:50 06/30/17 12:55 White Blood Count 12.6 Red Blood Count 2.71 Hemoglobin 8.5 Hematocrit 25.1 Mean Corpuscular Volume 92.6 Mean Corpuscular Hemoglobin 31.4 Mean Corpuscular Hemoglobin Concent 33.9 Red Cell Distribution Width 12.8 Platelet Count 245 Mean Platelet Volume 7.3 CBC Comment AUTO DIFF Differential Total Cells Counted 100 Neutrophils % (Manual) 81 Band Neutrophils % 2 Lymphocytes % 14 Monocytes % 2 Eosinophils % 1 Neutrophils # (Manual) 10.5 Differential Comment FINAL DIFF MANUAL Toxic Granulation 1+ Platelet Estimate NORMAL Platelet Morphology Comment NORMAL Prothrombin Time 11.5 Prothromb Time International Ratio 1.0 Activated Partial Thromboplast Time 26.5 Blood Urea Nitrogen 16 Creatinine 1.20 Random Glucose 138 Total Protein 5.3 Albumin 2.3 Calcium Level 7.4 Alkaline Phosphatase 38 Aspartate Amino Transf (AST/SGOT) 19 Alanine Aminotransferase (ALT/SGPT) 16 Total Bilirubin 0.5 Sodium Level 135 Potassium Level 3.9 Chloride Level 101 Carbon Dioxide Level 26.5 Anion Gap 8 Estimat Glomerular Filtration Rate 61 Protein Corrected Calcium 8.4 Troponin I LESS THAN 0.02 Lactic Acid Level 2.3 Date/Time Source Procedure Growth Status 06/30/17 12:55 Blood Peripheral Aerobic Blood Culture Pending Received 06/30/17 12:55 Blood Peripheral Anaerobic Blood Culture Pending Received Result Diagram: 06/30/17 1250 06/30/17 1250 Imaging Last Impressions Head CT 06/30/17 1244 Signed Impressions: Service Date/Time: Friday, June 30, 2017 13:34 - CONCLUSION: 1. No acute intracranial abnormality. Oli Cole MD Chest X-Ray 06/30/174 Signed Impressions: Service Date/Time: Friday, June 30, 2017 13:15 - CONCLUSION: 1. No acute abnormality or significant interval change. Oli Cole MD Abdomen/Pelvis CT 06/30/17 1244 Signed Impressions: Service Date/Time: Friday, June 30, 2017 13:37 - CONCLUSION: 1. Abnormal examination. Large intraparenchymal splenic hemorrhage with moderate hemoperitoneum. Consider CTA examination to evaluate for active hemorrhage as clinically warranted. 2. Status post left nephrectomy with upper limits of normal for postop day #7 postoperative free air and subcutaneous emphysema. Findings were personally discussed with Dr. Bee. Oli Cole MD Assessment and Plan Assessment and Plan 67-year-old male status post robot-assisted nephrectomy postop day 4 with splenic hematoma and hypotension requiring blood transfusion. His vital signs are now stable and he is comfortable in no distress. I recommend observation with close monitoring of vital signs and exam as well as serial hemoglobin and hematocrit. Most likely this will be able to be resolved without interventional or operative treatment. I discussed the possibilities of embolectomy or splenectomy with the patient and his and they understand. D /w Dr. Burt and Dr. Louise. I am to be called if he has any hypotension or requires further blood products. Kevyn,Joshua WICK Jun 30, 2017 17:07
[2017-06-30] MEDS: SODIUM CHLOR 0.9% 1000 ML INJ 1,000 ML IV SCH (18:34)
--- NOTE | 2017-06-30 19:47 | PD.CONS ---
HPI Service Urology Consult Requested By Reason for Consult Splenic Hematoma s/p Left Radical Nephrectomy Acute Blood loss Anemia Primary Care Physician Tony Thibodeaux DO Diagnosis: (1) Acute blood loss anemia ICD Code: D62 - Acute posthemorrhagic anemia (2) Gastroesophageal reflux disease ICD Code: K21.9 - Gastro-esophageal reflux disease without esophagitis (3) Leukocytosis ICD Code: D72.829 - Elevated white blood cell count, unspecified (4) Clear cell carcinoma of kidney ICD Code: C64.9 - Malignant neoplasm of unspecified kidney, except renal pelvis (5) COPD (chronic obstructive pulmonary disease) ICD Code: J44.9 - Chronic obstructive pulmonary disease, unspecified (6) Hypertension ICD Code: I10 - Essential (primary) hypertension (7) Symptomatic anemia ICD Code: D64.9 - Anemia, unspecified History of Present Illness 67 yo male POD # 5 Left Robotic Radical Nephrectomy presented to [facility] ER earlier today via EMS due to syncopal episode. In ER, he was found to be hypotensive, SBP 80s with Hgb 8.5. CT A/P without Contrast showed large Splenic hematoma. He was given 4 PRBCs and transferred to [facility] for further evaluation. He was discharged from the hospital 3 days ago following an uncomplicated Left Radical Robotic Nephrectomy on 06/25. Post operatively his hgb was 12 and vital stable. Hewas doing well up until Friday when he stood up and almost fainted. It happened 2 other times, which eventually led to EMS being called. He also was nauseated, but passing flatus. He has not had a bowel movement. Currently, he is resting comfortably in bed. Feels much better than this morning. Review of Systems Constitutional: COMPLAINS OF: Dizziness Gastrointestinal: COMPLAINS OF: Abdominal pain, Nausea Except as stated in HPI: all other systems reviewed are Neg Past Family Social History Past Medical History RCC, HTN, COPD Past Surgical History Left Robotic Radical Nephrectomy, Circumcision Reported Medications Albuterol Allergies: Coded Allergies: No Known Allergies (Unverified , 06/30/17) Family History Denies urolithiasis, malignancies Social History Denies tobacco, EtOH, illicit drugs; Physical Exam Vital Signs Date Time Temp Pulse Resp B/P (MAP) Pulse Ox O2 Delivery O2 Flow Rate FiO2 06/30/17 19:00 97 Nasal Cannula 2.00 06/30/17 18:00 73 06/30/17 17:31 06/30/17 16:00 76 06/30/17 16:00 97 Nasal Cannula 2.00 06/30/17 16:00 97.7 76 22 115/93 (100) 93 06/30/17 15:30 76 20 101/53 (69) 96 06/30/17 15:03 97.5 69 20 59/40 100 06/30/17 14:40 71 20 90/69 (76) 100 06/30/17 14:24 82 20 80/62 (68) 100 06/30/17 13:47 77 18 92/58 (69) 94 06/30/17 12:58 96 06/30/17 12:35 97.4 74 20 86/58 (67) 100 Physical Exam GENERAL: This is a well-nourished, well-developed patient, in no apparent distress. SKIN: No rashes, ecchymoses or lesions. Cool and dry. HEAD: Atraumatic. Normocephalic. No temporal or scalp tenderness. EYES: Pupils equal round and reactive. Extraocular motions intact. No scleral icterus. No injection or drainage. ENT: Nose without bleeding, purulent drainage or septal hematoma. Throat without erythema, tonsillar hypertrophy or exudate. Uvula midline. Airway patent. NECK: Trachea midline. No JVD or lymphadenopathy. Supple, nontender, no meningeal signs. CARDIOVASCULAR: Regular rate and rhythm without murmurs, gallops, or rubs. RESPIRATORY: Clear to auscultation. Breath sounds equal bilaterally. No wheezes , rales, or rhonchi. GASTROINTESTINAL: Abdomen soft, non-tender, nondistended. No hepato-splenomegaly , or palpable masses. No guarding. incisions c/d/i GENITOURINARY: phallus circumcised, testes without mass MUSCULOSKELETAL: Extremities without clubbing, cyanosis, or edema. No joint tenderness, effusion, or edema noted. No calf tenderness. Negative Homans sign bilaterally. NEUROLOGICAL: Awake and alert. Cranial nerves II through XII intact. Motor and sensory grossly within normal limits. Five out of 5 muscle strength in all muscle groups. Normal speech. Lab results reviewed: Yes Laboratory Tests Test 06/30/17 12:50 06/30/17 12:55 06/30/17 18:30 White Blood Count 12.6 Red Blood Count 2.71 Hemoglobin 8.5 Hematocrit 25.1 Mean Corpuscular Volume 92.6 Mean Corpuscular Hemoglobin 31.4 Mean Corpuscular Hemoglobin Concent 33.9 Red Cell Distribution Width 12.8 Platelet Count 245 Mean Platelet Volume 7.3 CBC Comment AUTO DIFF Differential Total Cells Counted 100 Neutrophils % (Manual) 81 Band Neutrophils % 2 Lymphocytes % 14 Monocytes % 2 Eosinophils % 1 Neutrophils # (Manual) 10.5 Differential Comment FINAL DIFF MANUAL Toxic Granulation 1+ Platelet Estimate NORMAL Platelet Morphology Comment NORMAL Prothrombin Time 11.5 Prothromb Time International Ratio 1.0 Activated Partial Thromboplast Time 26.5 Blood Urea Nitrogen 16 Creatinine 1.20 Random Glucose 138 Total Protein 5.3 Albumin 2.3 Calcium Level 7.4 Alkaline Phosphatase 38 Aspartate Amino Transf (AST/SGOT) 19 Alanine Aminotransferase (ALT/SGPT) 16 Total Bilirubin 0.5 Sodium Level 135 Potassium Level 3.9 Chloride Level 101 Carbon Dioxide Level 26.5 Anion Gap 8 Estimat Glomerular Filtration Rate 61 Protein Corrected Calcium 8.4 Troponin I LESS THAN 0.02 Lactic Acid Level 2.3 Date/Time Source Procedure Growth Status 06/30/17 12:55 Blood Peripheral Aerobic Blood Culture Pending Received 06/30/17 12:55 Blood Peripheral Anaerobic Blood Culture Pending Received Result Diagram: 06/30/17 1250 06/30/17 1250 Personally reviewed images: Yes (Large 11 cm splenic hematoma) Imaging Last Impressions Head CT 06/30/171243 Signed Impressions: Service Date/Time: Friday, June 30, 2017 13:34 - CONCLUSION: 1. No acute intracranial abnormality. Oli Cole MD Chest X-Ray 06/30/171243 Signed Impressions: Service Date/Time: Friday, June 30, 2017 13:15 - CONCLUSION: 1. No acute abnormality or significant interval change. Oli Cole MD Abdomen/Pelvis CT 06/30/171243 Signed Impressions: Service Date/Time: Friday, June 30, 2017 13:37 - CONCLUSION: 1. Abnormal examination. Large intraparenchymal splenic hemorrhage with moderate hemoperitoneum. Consider CTA examination to evaluate for active hemorrhage as clinically warranted. 2. Status post left nephrectomy with upper limits of normal for postop day #7 postoperative free air and subcutaneous emphysema. Findings were personally discussed with Dr. Bee. Oli Cole MD Assessment and Plan Problem List: (1) Splenic hemorrhage ICD Code: D73.89 - Other diseases of spleen (2) Clear cell carcinoma of kidney ICD Code: C64.9 - Malignant neoplasm of unspecified kidney, except renal pelvis Assessment and Plan He is currently hemodynamically stable following 4 PRBCs. Continue Bed rest, NPO Follow H/H. Transfuse as needed. Appreciate General Surgery, Helicopter Specialist input. D/w Dr. Bagley, patient and . Problem Qualifiers (1) Leukocytosis: Qualified Codes: D72.829 - Elevated white blood cell count, unspecified (2) Clear cell carcinoma of kidney: Qualified Codes: C64.2 - Malignant neoplasm of left kidney, except renal pelvis (3) COPD (chronic obstructive pulmonary disease): (4) Hypertension: Qualified Codes: I10 - Essential (primary) hypertension Gaurav Louise MD Jun 30, 2017 19:47
[2017-06-30] MEDS: CHLORHEXIDINE 0.12% (ORAL KIT) 15 ML CUP MT SCH (20:00)
[2017-06-30] MEDS: RESP: ALBUTEROL 2.5 MG/IPRATROPIUM 0.5 MG NEB (SCH) INH (20:02)
[2017-06-30 20:27] LABS: HEMATOCRIT 37.4 % (39.0-51.0); REVIEW FLAG FINAL
[2017-06-30] MEDS: SODIUM CHLORIDE 0.9% FLUSH 10 ML FLUSH IV FLUSH SCH (20:51)
[2017-06-30] MEDS: LACTULOSE SYRUP 20 GM/30 ML CUP PO PRN (20:51)
[2017-06-30] MEDS: DOCUSATE SODIUM 50 MG/SENNA 8.6 MG TAB PO SCH (20:51)
[2017-06-30] MEDS: ACETAMINOPHEN/HYDROcodone 325 MG/5 MG TAB PO PRN (20:52)
[2017-06-30] MEDS: ONDANSETRON HCL 4 MG/2 ML VIAL IV PUSH PRN (21:04)
[2017-06-30] MEDS: BUDESONIDE-FORMOTEROL 160/4.5 MCG INHALER INH SCH (23:18)
[2017-06-30 23:26] LABS: BLOOD, URINE NEG (NEG); GLUCOSE,URINE NEG (NEG); HYALINE CAST, URINE 9 /lpf (RARE); KETONE, URINE NEG (NEG); MUCUS URINE FEW /lpf (OCC); NITRITE,URINE NEG (NEG); PH, URINE 5.5 (5.0-8.5); URINE COLOR YELLOW (YELLW/STRAW)
[2017-06-30 23:27] LABS: COMMENT (UR) CATH-CULT NOT IND; CULTURE IF INDICATED CATH CULTURE NOT IND
[2017-07-01] VITALS (14 sets, daily range): BP systolic 105–145; BP diastolic 61–83; PULSE 70–84; RESP 13–25; TEMP 98–99.4; O2SAT 92–97
[2017-07-01 01:46] LABS: HEMATOCRIT 31.6 % (39.0-51.0); REVIEW FLAG FINAL
[2017-07-01] MEDS: RESP: ALBUTEROL 2.5 MG/IPRATROPIUM 0.5 MG NEB (SCH) INH ×4 (03:08→20:32)
[2017-07-01] MEDS: CHLORHEXIDINE GLUCONATE 2 % 1 PACK (2 CLOTHS) TOP SCH (04:00)
[2017-07-01] MEDS: ACETAMINOPHEN/HYDROcodone 325 MG/5 MG TAB PO PRN ×4 (04:20→21:52)
[2017-07-01 05:08] LABS: AUTOMATED NEUTROPHIL # 7.3 TH/MM3 (1.8-7.7); BASOPHIL % 0.4 % (0.0-2.0); EOSINOPHIL # 0.2 TH/MM3 (0-0.4); EOSINOPHIL % 1.5 % (0.0-4.0); HEMATOCRIT 33.4 % (39.0-51.0); HEMO FLAGS DIFF FINAL; LYMPH % 23.1 % (9.0-44.0); LYMPHOCYTE # 2.5 TH/MM3 (1.0-4.8); MEAN CELL VOLUME 87.2 FL (80.0-100.0); MEAN CORPUSCULAR HEMOGLOBIN 29.7 PG (27.0-34.0); MONO % 7.5 % (0.0-8.0); NEUT % 67.5 % (16.0-70.0); PLATELET COUNT 181 TH/MM3 (150-450); RED BLOOD COUNT 3.84 MIL/MM3 (4.50-5.90); RED CELL DISTRIBUTION WIDTH 16.1 % (11.6-17.2); WHITE BLOOD COUNT 10.8 TH/MM3 (4.0-11.0)
[2017-07-01 05:11] LABS: APTT (PATIENT) 26.3 SEC (24.3-30.1); PROTHROMBIN TIME - PATIENT 11.3 SEC (9.8-11.6)
[2017-07-01] MEDS: SODIUM CHLOR 0.9% 1000 ML INJ 1,000 ML IV SCH ×2 (05:24→16:24)
[2017-07-01 05:33] LABS: ANION GAP 10 MEQ/L (5-15); BICARBONATE 25.1 MEQ/L (21.0-32.0); BLOOD UREA NITROGEN 18 MG/DL (7-18); CHLORIDE 101 MEQ/L (98-107); GLOMERULAR FILTRATION RATE 59 ML/MIN (>89); MAGNESIUM 2.1 MG/DL (1.5-2.5); POTASSIUM 4.4 MEQ/L (3.5-5.1); SODIUM (NA) 136 MEQ/L (136-145)
[2017-07-01 05:35] LABS: ALT (GPT) 18 U/L (12-78)
[2017-07-01 05:39] LABS: ALKALINE PHOSPHATASE 46 U/L (45-117); AST (GOT) 15 U/L (15-37); TOTAL BILIRUBIN ADULT 0.8 MG/DL (0.2-1.0)
[2017-07-01] MEDS: CHLORHEXIDINE 0.12% (ORAL KIT) 15 ML CUP MT SCH ×2 (07:29→20:00)
[2017-07-01] MEDS: SODIUM CHLORIDE 0.9% FLUSH 10 ML FLUSH IV FLUSH SCH ×2 (07:29→20:46)
[2017-07-01] MEDS: PANTOPRAZOLE SODIUM 40 MG VIAL IV PUSH SCH (08:05)
[2017-07-01] MEDS: MAGNESIUM HYDROXIDE SUSP 30 ML CUP PO PRN (08:05)
[2017-07-01] MEDS: BUDESONIDE-FORMOTEROL 160/4.5 MCG INHALER INH SCH ×2 (08:05→20:46)
[2017-07-01] MEDS: DOCUSATE SODIUM 50 MG/SENNA 8.6 MG TAB PO SCH ×2 (08:05→20:46)
[2017-07-01] MEDS: ONDANSETRON HCL 4 MG/2 ML VIAL IV PUSH PRN ×2 (08:07→20:59)
[2017-07-01] MEDS ORDERED: PT OWN (Tiotropium Inh (Spiriva Respimat Inh) INH SCH (09:00)
--- NOTE | 2017-07-01 09:00 | HHI.PR ---
Subjective Remarks S/P recent left radical nephrectomy for clear cell carcinoma presented to ED yesterday with hypotension and found to be anemic with Hg down to 8 and splenic bleeding and hemoperitoneum per CT. He C/O no BM for several days with stool softeners and laxatives. Objective Vital Signs Date Time Temp Pulse Resp B/P (MAP) Pulse Ox O2 Delivery O2 Flow Rate FiO2 07/01/17 07:00 95 Room Air 07/01/17 06:00 70 07/01/17 04:00 98.7 77 16 119/61 (80) 95 07/01/17 04:00 77 07/01/17 02:00 70 07/01/17 00:00 99.4 78 24 105/64 (78) 92 07/01/17 00:00 74 06/30/17 22:00 74 06/30/17 20:05 99 Nasal Cannula 2.00 06/30/17 20:00 78 06/30/17 20:00 99.3 78 21 100/67 (78) 98 06/30/17 19:00 97 Nasal Cannula 2.00 06/30/17 18:00 73 06/30/17 17:31 06/30/17 16:00 76 06/30/17 16:00 97 Nasal Cannula 2.00 06/30/17 16:00 97.7 76 22 115/93 (100) 93 06/30/17 15:30 76 20 101/53 (69) 96 06/30/17 15:03 97.5 69 20 59/40 100 06/30/17 14:40 71 20 90/69 (76) 100 06/30/17 14:24 82 20 80/62 (68) 100 06/30/17 13:47 77 18 92/58 (69) 94 06/30/17 12:58 96 06/30/17 12:35 97.4 74 20 86/58 (67) 100 I/O 06/30/17 06/30/17 06/30/17 07/01/17 07/01/17 07/01/17 07:00 15:00 23:00 07:00 15:00 23:00 Intake Total 1810 ml 995 ml Output Total 250 ml 500 ml Balance 1560 ml 495 ml Intake Oral 0 ml IV Total 500 ml 995 ml Packed Cells 1300 ml Blood Product IV Normal Saline Flush 10 ml Output Urine Total 250 ml 500 ml # Bowel Movements 0 Result Diagram: 07/01/1741907/01/17419 Imaging Last [address] 06/30/174 Signed Impressions: Service Date/Time: Friday, June 30, 2017 13:34 - CONCLUSION: 1. No acute intracranial abnormality. Oli Cole MD Chest X-Ray 06/30/171243 Signed Impressions: Service Date/Time: Friday, June 30, 2017 13:15 - CONCLUSION: 1. No acute abnormality or significant interval change. Oli Cole MD Abdomen/Pelvis CT 06/30/174 Signed Impressions: Service Date/Time: Friday, June 30, 2017 13:37 - CONCLUSION: 1. Abnormal examination. Large intraparenchymal splenic hemorrhage with moderate hemoperitoneum. Consider CTA examination to evaluate for active hemorrhage as clinically warranted. 2. Status post left nephrectomy with upper limits of normal for postop day #7 postoperative free air and subcutaneous emphysema. Findings were personally discussed with Dr. Bee. Oli Cole MD Objective Remarks Neuro - Alert and oriented Resp - CTA CV - RRR without murmur rub or gallop Abd - soft and nontender. Reduced BS present MS - No edema with FROM Medications and IVs Current Medications Medications (Trade) Dose Ordered Sig/Gal[place] Route Start Time Stop Time Status Last Admin (NS Flush) 2 ml UNSCH PRN IV FLUSH 06/30/17 12:45 Sodium Chloride 1,000 ml @ 84 mls/hr [id number] IV 06/30/17 18:00 07/01/17 05:24 (NS Flush) 2 ml UNSCH PRN IV FLUSH 06/30/17 17:00 (NS Flush) 2 ml BID IV FLUSH 06/30/17 21:00 07/01/17 07:29 (Tylenol) 650 mg Q6H PRN PO 06/30/17 17:00 ([place] 5-325 Mg) 1 tab Q4H PRN PO 06/30/17 17:00 07/01/17 04:20 (Morphine Inj) 2 mg Q2H PRN IV PUSH 06/30/17 17:00 (Protonix Inj) 40 mg DAILY IV PUSH 07/01/17 09:00 07/01/17 08:05 (Zofran Inj) 4 mg Q6H PRN IV PUSH 06/30/17 17:00 07/01/17 08:07 (Duoneb Neb) 1 ampule Q6HR NEB INH 06/30/17 22:00 07/01/17 08:49 (Albuterol Neb) 2.5 mg Q2HR NEB PRN INH 06/30/17 17:00 Miscellaneous Information 1 Q361D XX 06/30/17 17:00 06/30/17 17:00 (Chlorhexidine 2% Cloth) 3 pack Taper DAILY@04 TOP 07/01/17 04:00 06/27/18 03:59 (Chlorhexidine 2% Cloth) 3 pack UNSCH PRN TOP 06/30/17 17:00 (Elaine-Colace) 1 tab BID PO 06/30/17 21:00 07/01/17 08:05 (Milk Of Magnesia Liq) 30 ml Q12H PRN PO 06/30/17 17:00 07/01/17 08:05 (Senokot) 17.2 mg Q12H PRN PO 06/30/17 17:00 (Dulcolax Supp) 10 mg DAILY PRN RECTAL 06/30/17 17:00 (Lactulose Liq) 30 ml DAILY PRN PO 06/30/17 17:00 06/30/17 20:51 (Peridex 0.12% Liq) 15 ml BID@08,20 MT 06/30/17 20:00 (Symbicort 160-4.5 Inh) 1 puff BID INH 06/30/17 21:00 07/01/17 08:05 Patient Own Medication PT OWN MED: (Tiotrop... DAILY INH 07/01/17 09:00 Future Hold Assessment and Plan Problem List: (1) Hypotension ICD Codes: I95.9 - Hypotension, unspecified Status: Resolved Plan: After 4 U PRBC and IV hydration, hypotension resolved. (2) Hemoperitoneum ICD Codes: K66.1 - Hemoperitoneum Status: Acute Plan: CT evidence of post op hemorrhage on adm (3) Postoperative hemorrhage of spleen following non-spleen procedure ICD Codes: D78.22 - Postprocedural hemorrhage of the spleen following other procedure Status: Resolved Plan: CT evidence of spleenic bleeding on admission (4) Acute blood loss anemia ICD Codes: D62 - Acute posthemorrhagic anemia Status: Resolved Plan: Resolved with 4 U PRBC Assessment and Plan Cont close monitoring and F/U surgery recommendations Discussed Condition With Patient and spouse Discharge Planning Home when stable Problem Qualifiers (1) Hypotension: Qualified Codes: I95.9 - Hypotension, unspecified David Burnette Jul 01, 2017 09:00
--- NOTE | 2017-07-01 09:04 | HHI.PR ---
Subjective Subjective Notes Denies pain. + flatus. BP and HR stable. H/H stable. Objective Vitals/I&O Vital Signs Date Time Temp Pulse Resp B/P (MAP) Pulse Ox O2 Delivery O2 Flow Rate FiO2 07/01/17 08:49 95 21 07/01/17 08:00 75 07/01/17 08:00 98.9 13 119/71 (87) 07/01/17 07:00 Room Air 06/30/17 20:05 2.00 Labs Laboratory Tests Test 06/30/17 12:50 06/30/17 12:55 06/30/17 18:30 06/30/17 19:54 White Blood Count 12.6 Red Blood Count 2.71 Hemoglobin 8.5 12.6 Hematocrit 25.1 37.4 Mean Corpuscular Volume 92.6 Mean Corpuscular Hemoglobin 31.4 Mean Corpuscular Hemoglobin Concent 33.9 Red Cell Distribution Width 12.8 Platelet Count 245 Mean Platelet Volume 7.3 CBC Comment AUTO DIFF Differential Total Cells Counted 100 Neutrophils % (Manual) 81 Band Neutrophils % 2 Lymphocytes % 14 Monocytes % 2 Eosinophils % 1 Neutrophils # (Manual) 10.5 Differential Comment FINAL DIFF MANUAL Toxic Granulation 1+ Platelet Estimate NORMAL Platelet Morphology Comment NORMAL Prothrombin Time 11.5 Prothromb Time International Ratio 1.0 Activated Partial Thromboplast Time 26.5 Blood Urea Nitrogen 16 Creatinine 1.20 Random Glucose 138 Total Protein 5.3 Albumin 2.3 Calcium Level 7.4 Alkaline Phosphatase 38 Aspartate Amino Transf (AST/SGOT) 19 Alanine Aminotransferase (ALT/SGPT) 16 Total Bilirubin 0.5 Sodium Level 135 Potassium Level 3.9 Chloride Level 101 Carbon Dioxide Level 26.5 Anion Gap 8 Estimat Glomerular Filtration Rate 61 Protein Corrected Calcium 8.4 Troponin I LESS THAN 0.02 Lactic Acid Level 2.3 1.6 Nasal Screen MRSA (PCR) MRSA NOT DETECTED Test 06/30/17 22:15 07/01/17 01:14 07/01/17 04:20 Urine Color YELLOW Urine Turbidity CLEAR Urine pH 5.5 Urine Specific [place] 1.025 Urine Protein TRACE Urine Glucose (UA) NEG Urine Ketones NEG Urine Occult Blood NEG Urine Nitrite NEG Urine Bilirubin NEG Urine Urobilinogen 2.0 Urine Leukocyte Esterase NEG Urine RBC 1 Urine WBC 1 Urine Hyaline Casts 9 Urine Mucus FEW Microscopic Urinalysis Comment CATH-CULT NOT IND Hemoglobin 11.2 11.4 Hematocrit 31.6 33.4 White Blood Count 10.8 Red Blood Count 3.84 Mean Corpuscular Volume 87.2 Mean Corpuscular Hemoglobin 29.7 Mean Corpuscular Hemoglobin Concent 34.0 Red Cell Distribution Width 16.1 Platelet Count 181 Mean Platelet Volume 7.3 Neutrophils (%) (Auto) 67.5 Lymphocytes (%) (Auto) 23.1 Monocytes (%) (Auto) 7.5 Eosinophils (%) (Auto) 1.5 Basophils (%) (Auto) 0.4 Neutrophils # (Auto) 7.3 Lymphocytes # (Auto) 2.5 Monocytes # (Auto) 0.8 Eosinophils # (Auto) 0.2 Basophils # (Auto) 0.0 CBC Comment DIFF FINAL Differential Comment Prothrombin Time 11.3 Prothromb Time International Ratio 1.0 Activated Partial Thromboplast Time 26.3 Blood Urea Nitrogen 18 Creatinine 1.24 Random Glucose 98 Total Protein 5.8 Albumin 2.6 Calcium Level 8.5 Phosphorus Level 3.2 Magnesium Level 2.1 Alkaline Phosphatase 46 Aspartate Amino Transf (AST/SGOT) 15 Alanine Aminotransferase (ALT/SGPT) 18 Total Bilirubin 0.8 Sodium Level 136 Potassium Level 4.4 Chloride Level 101 Carbon Dioxide Level 25.1 Anion Gap 10 Estimat Glomerular Filtration Rate 59 Date/Time Source Procedure Growth Status 06/30/17 12:55 Blood Peripheral Aerobic Blood Culture Pending Received 06/30/17 12:55 Blood Peripheral Anaerobic Blood Culture Pending Received Radiology Last Impressions Head CT 06/30/171243 Signed Impressions: Service Date/Time: Friday, June 30, 2017 13:34 - CONCLUSION: 1. No acute intracranial abnormality. Oli Cole MD Chest X-Ray 06/30/171243 Signed Impressions: Service Date/Time: Friday, June 30, 2017 13:15 - CONCLUSION: 1. No acute abnormality or significant interval change. Oli Cole MD Abdomen/Pelvis CT 06/30/171243 Signed Impressions: Service Date/Time: Red, June 30, 2017 13:37 - CONCLUSION: 1. Abnormal examination. Large intraparenchymal splenic hemorrhage with moderate hemoperitoneum. Consider CTA examination to evaluate for active hemorrhage as clinically warranted. 2. Status post left nephrectomy with upper limits of normal for postop day #7 postoperative free air and subcutaneous emphysema. Findings were personally discussed with Dr. Bee. Oli Cole MD Narrative Exam NAD, comfortable in bed Abd: soft, nontender, mild distention, inc c/d/i A/P Assessment and Plan 67-year-old male status post robot-assisted nephrectomy postop day 4 with splenic hematoma and hypotension requiring blood transfusion. Vitals and H/H stable. Start clears. Keep in ISC tonight. Continue bedrest. Recheck H/H 1800 and tomorrow am. Joshua Bagley MD Jul 01, 2017 09:04
[2017-07-01 11:51] LABS: REVIEW FLAG FINAL
--- NOTE | 2017-07-01 15:27 | HHI.PR ---
Subjective Patient symptoms today feels better today. Passing flatus. Denies BMs. Feels somewhat bloated. Minimal pain. Objective Vital Signs Vital Signs Date Time Temp Pulse Resp B/P (MAP) Pulse Ox O2 Delivery O2 Flow Rate FiO2 07/01/17 12:00 98.4 81 23 145/70 (95) 97 07/01/17 12:00 81 07/01/17 10:00 79 07/01/17 08:49 95 21 07/01/17 08:00 75 07/01/17 08:00 98.9 75 13 119/71 (87) 96 07/01/17 07:00 95 Room Air 07/01/17 06:00 70 07/01/17 04:00 98.7 77 16 119/61 (80) 95 07/01/17 04:00 77 07/01/17 02:00 70 07/01/17 00:00 99.4 78 24 105/64 (78) 92 07/01/17 00:00 74 06/30/17 22:00 74 06/30/17 20:05 99 Nasal Cannula 2.00 06/30/17 20:00 78 06/30/17 20:00 99.3 78 21 100/67 (78) 98 06/30/17 19:00 97 Nasal Cannula 2.00 06/30/17 18:00 73 06/30/17 17:31 06/30/17 16:00 76 06/30/17 16:00 97 Nasal Cannula 2.00 06/30/17 16:00 97.7 76 22 115/93 (100) 93 06/30/17 15:30 76 20 101/53 (69) 96 Intake & Output 07/01/17 07/01/17 07:00 19:00 Intake Total 995 ml Output Total 500 ml Balance 495 ml IV Total 995 ml Output Urine Total 500 ml Result Diagram: 07/01/17 1118 07/01/17 0420 Objective Remarks NAD. abd soft, non tender, mild distention. No peritoneal signs. inc c/d/i Ext NT. Medications and IVs Current Medications Medications (Trade) Dose Ordered Sig/[place] Route Start Time Stop Time Status Last Admin (NS Flush) 2 ml UNSCH PRN IV FLUSH 06/30/17 12:45 Sodium Chloride 1,000 ml @ 84 mls/hr [id number] IV 06/30/17 18:00 07/01/17 05:24 (NS Flush) 2 ml UNSCH PRN IV FLUSH 06/30/17 17:00 (NS Flush) 2 ml BID IV FLUSH 06/30/17 21:00 07/01/17 07:29 (Tylenol) 650 mg Q6H PRN PO 06/30/17 17:00 ([place] 5-325 Mg) 1 tab Q4H PRN PO 06/30/17 17:00 07/01/17 04:20 (Morphine Inj) 2 mg Q2H PRN IV PUSH 06/30/17 17:00 (Protonix Inj) 40 mg DAILY IV PUSH 07/01/17 09:00 07/01/17 08:05 (Zofran Inj) 4 mg Q6H PRN IV PUSH 06/30/17 17:00 07/01/17 08:07 (Duoneb Neb) 1 ampule Q6HR NEB INH 06/30/17 22:00 07/01/17 08:49 (Albuterol Neb) 2.5 mg Q2HR NEB PRN INH 06/30/17 17:00 Miscellaneous Information 1 Q361D XX 06/30/17 17:00 06/30/17 17:00 (Chlorhexidine 2% Cloth) 3 pack Taper DAILY@04 TOP 07/01/17 04:00 06/27/18 03:59 (Chlorhexidine 2% Cloth) 3 pack UNSCH PRN TOP 06/30/17 17:00 (Elaine-Colace) 1 tab BID PO 06/30/17 21:00 07/01/17 08:05 (Milk Of Magnesia Liq) 30 ml Q12H PRN PO 06/30/17 17:00 07/01/17 08:05 (Senokot) 17.2 mg Q12H PRN PO 06/30/17 17:00 (Dulcolax Supp) 10 mg DAILY PRN RECTAL 06/30/17 17:00 (Lactulose Liq) 30 ml DAILY PRN PO 06/30/17 17:00 06/30/17 20:51 (Peridex 0.12% Liq) 15 ml BID@08,20 MT 06/30/17 20:00 (Symbicort 160-4.5 Inh) 1 puff BID INH 06/30/17 21:00 07/01/17 08:05 Patient Own Medication PT OWN MED: (Tiotrop... DAILY INH 07/01/17 09:00 Future Hold Assessment and Plan Problem List: (1) Splenic hemorrhage ICD Code: D73.89 - Other diseases of spleen (2) Clear cell carcinoma of kidney ICD Code: C64.9 - Malignant neoplasm of unspecified kidney, except renal pelvis Assessment and Plan H/H stable. Repeat at 6pm, then in A.M. If stable, can get OOB Discussed pathology with him and his . Problem Qualifiers (1) Clear cell carcinoma of kidney: Qualified Codes: C64.2 - Malignant neoplasm of left kidney, except renal pelvis Gaurav Louise MD Jul 01, 2017 15:27
--- NOTE | 2017-07-01 17:25 | HHI.CCPN ---
Subjective Remarks/Hospital Course This is a 67-year-old male. Date of admission 06/30/2017. 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 This is from 06/25. Results was a clear cell carcinoma pT1b, Nx Mx, patient presented [place] today complaining of lightheadedness and dizziness. He is also noted to have left shoulder pain. Patient was noted to be hypotensive with systolic blood pressure in the 50s. Denied with significant abdominal pain. Head CT revealed no acute intracranial findings. CT of the abdomen/ pelvis revealed a intraparenchymal splenic hematoma 11.5 x 11.3 x 14.2 cm. Hemoglobin 8. Surgery and urology were consulted. We are asked to admit the patient in [facility] Patient has received 4 units PRBC stat. Patient's been seen by Dr. Bagley. Recommended conservative therapy with serial hemoglobins. Will be available to comes acutely hypotensive overnight. Subjective 07/01: Resting comfortably in bed. Normotensive. Hemoglobin slowly trending downward currently 10.4. Recheck at age pending. Abdominal pain control. Objective Vital Signs Date Time Temp Pulse Resp B/P (MAP) Pulse Ox O2 Delivery O2 Flow Rate FiO2 07/01/17 16:00 98.5 70 17 140/72 (94) 95 07/01/17 08:49 21 07/01/17 07:00 Room Air 06/30/17 20:05 2.00 Intake and Output 07/01/17 07/01/17 07/02/17 08:00 16:00 00:00 Intake Total 995 ml 860 ml Output Total 500 ml Balance 495 ml 860 ml Result Diagram: 07/01/17 1118 07/01/17 0420 Imaging Last [address] 06/30/17 2366 Signed Impressions: Service Date/Time: Friday, June 30, 2017 13:34 - CONCLUSION: 1. No acute intracranial abnormality. Oli Cole MD Chest X-Ray 06/30/17 2427 Signed Impressions: Service Date/Time: Friday, June 30, 2017 13:15 - CONCLUSION: 1. No acute abnormality or significant interval change. Oli Cole MD Abdomen/Pelvis CT 06/30/17 4188 Signed Impressions: Service Date/Time: Friday, June 30, 2017 13:37 - CONCLUSION: 1. Abnormal examination. Large intraparenchymal splenic hemorrhage with moderate hemoperitoneum. Consider CTA examination to evaluate for active hemorrhage as clinically warranted. 2. Status post left nephrectomy with upper limits of normal for postop day #7 postoperative free air and subcutaneous emphysema. Findings were personally discussed with Dr. Bee. Oli Cole MD Objective Remarks GENERAL: 67-year-old male, critically ill currently resting in bed in no acute distress SKIN: Warm and dry. HEAD: Atraumatic. Normocephalic. EYES: Pupils equal and round about 3 mm bilaterally and reactive. No scleral icterus. No injection or drainage. ENT: No nasal bleeding or discharge. Mucous membranes pink and moist. NECK: Trachea midline. No JVD. CARDIOVASCULAR: Regular rate and rhythm. S1, S2. No S4. Without murmur RESPIRATORY: No accessory muscle use. Clear to auscultation. Breath sounds equal bilaterally. GASTROINTESTINAL: Abdomen soft, non-tender, protuberant. 4 Prior trocar scars midline and left upper quadrant are clean dry and intact.. MUSCULOSKELETAL: Extremities without significant peripheral edema. No obvious deformities. NEUROLOGICAL: Awake and alert. No obvious cranial nerve deficits. Motor grossly within normal limits. Five out of 5 muscle strength in the arms and legs. Normal speech. PSYCHIATRIC: Appropriate mood and affect; insight and judgment normal. A/P Assessment and Plan Neuro/Psych: Acetaminophen for fever [place]/morphine for pain management CV: Hypertension Lactate 2.3 currently 1.6 Currently holding amlodipine/benazepril 10/20 one tablet twice a day for hypertension. Holding indapamide 2.5 mill grams by mouth daily Currently normal saline at 84 cc an hour. EKG revealed normal sinus rhythm. Normal [place], QRS and QT intervals. Resp: COPD/asthma Nasal cannula to maintain saturations greater than or equal to 92% Incentive spirometry while awake Currently in fluticasone/salmeterol 250/50 one inhalation twice a day and tiotropium 1 inhalation daily. GI: Large left splenic intraparenchymal hematoma Hypoalbuminemia Evaluated by Dr. Bagley/general surgery and Dr. Louise/urology. No plans for surgical intervention at the present time. Serial hemoglobins every 6 hours Advance diet as tolerated : No indication for Samuels catheter Endo: Sliding-scale insulin if indicated to maintain euglycemia Renal: Clear cell carcinoma pT1x. Nx, Mx Status post robot-assisted left nephrectomy Dr. Louise consulted. Conservative management the present time. Creatinine currently within normal limits Monitor urine output Accurate I's and O's Heme: Acute blood loss anemia Leukocytosis Transfused 4 units PRBCs Serial hemoglobins every 6 hours currently 10.4 ID: Previously on cephalexin Monitor for infection MSK: PT evaluate and treat FEN: Hyponatremia currently normal Replace electrolytes as clinically indicated Access - Utilize peripheral IV. Central line if indicated Prophylaxis - GI - pantoprazole - DVT - SCD/holding pharmacological prophylaxis in light of large splenic hematoma Level II follow-up Erick Burt MD Jul 01, 2017 17:25
[2017-07-01] MEDS: LACTULOSE SYRUP 20 GM/30 ML CUP PO PRN (20:46)
[2017-07-01 21:46] LABS: HEMATOCRIT 28.7 % (39.0-51.0); REVIEW FLAG FINAL
[2017-07-02] VITALS (13 sets, daily range): BP systolic 131–161; BP diastolic 78–90; PULSE 70–94; RESP 15–29; TEMP 97.2–98.8; O2SAT 94–96
[2017-07-02] MEDS: ACETAMINOPHEN/HYDROcodone 325 MG/5 MG TAB PO PRN ×5 (02:58→21:01)
[2017-07-02] MEDS: ONDANSETRON HCL 4 MG/2 ML VIAL IV PUSH PRN ×2 (02:58→14:05)
[2017-07-02] MEDS: RESP: ALBUTEROL 2.5 MG/IPRATROPIUM 0.5 MG NEB (SCH) INH ×4 (03:04→19:19)
[2017-07-02] MEDS: CHLORHEXIDINE GLUCONATE 2 % 1 PACK (2 CLOTHS) TOP SCH (04:00)
[2017-07-02] MEDS: SODIUM CHLOR 0.9% 1000 ML INJ 1,000 ML IV SCH ×2 (04:19→19:29)
--- NOTE | 2017-07-02 04:58 | HHI.PR ---
Subjective Patient symptoms today denies pain. feels restless. has appetite. Denies CP/SOB. Passing Flatus. No BMs yet. Objective Vital Signs Vital Signs Date Time Temp Pulse Resp B/P (MAP) Pulse Ox O2 Delivery O2 Flow Rate FiO2 07/02/17 04:00 98.7 71 21 131/81 (98) 96 07/02/17 04:00 71 07/02/17 02:00 72 07/02/17 00:00 78 07/02/17 00:00 98.8 78 15 139/82 (101) 94 07/01/17 22:00 84 07/01/17 20:34 95 21 07/01/17 20:00 98.0 76 25 132/83 (99) 96 07/01/17 20:00 76 07/01/17 19:00 96 Room Air 07/01/17 18:00 77 07/01/17 16:00 98.5 70 17 140/72 (94) 95 07/01/17 16:00 82 07/01/17 14:00 77 07/01/17 12:00 98.4 81 23 145/70 (95) 97 07/01/17 12:00 81 07/01/17 10:00 79 07/01/17 08:49 95 21 07/01/17 08:00 75 07/01/17 08:00 98.9 75 13 119/71 (87) 96 07/01/17 07:00 95 Room Air 07/01/17 06:00 70 Intake & Output 07/02/17 07/02/17 07:00 19:00 Intake Total 895 ml Balance 895 ml IV Total 895 ml Result Diagram: 07/01/17195207/01/17419 Objective Remarks NAD. abd soft, non tender, mild distention. No peritoneal signs. inc c/d/i Ext NT. Medications and IVs Current Medications Medications (Trade) Dose Ordered Sig/Galina Route Start Time Stop Time Status Last Admin (NS Flush) 2 ml UNSCH PRN IV FLUSH 06/30/17 12:45 Sodium Chloride 1,000 ml @ 84 mls/hr [id number] IV 06/30/17 18:00 07/02/17 04:19 (NS Flush) 2 ml UNSCH PRN IV FLUSH 06/30/17 17:00 (NS Flush) 2 ml BID IV FLUSH 06/30/17 21:00 07/01/17 20:46 (Tylenol) 650 mg Q6H PRN PO 06/30/17 17:00 ([place] 5-325 Mg) 1 tab Q4H PRN PO 06/30/17 17:00 07/02/17 02:58 (Morphine Inj) 2 mg Q2H PRN IV PUSH 06/30/17 17:00 (Protonix Inj) 40 mg DAILY IV PUSH 07/01/17 09:00 07/01/17 08:05 (Zofran Inj) 4 mg Q6H PRN IV PUSH 06/30/17 17:00 07/02/17 02:58 (Duoneb Neb) 1 ampule Q6HR NEB INH 06/30/17 22:00 07/01/17 20:32 (Albuterol Neb) 2.5 mg Q2HR NEB PRN INH 06/30/17 17:00 Miscellaneous Information 1 Q361D XX 06/30/17 17:00 06/30/17 17:00 (Chlorhexidine 2% Cloth) 3 pack Taper DAILY@04 TOP 07/01/17 04:00 06/27/18 03:59 (Chlorhexidine 2% Cloth) 3 pack UNSCH PRN TOP 06/30/17 17:00 (Elaine-Colace) 1 tab BID PO 06/30/17 21:00 07/01/17 20:46 (Milk Of Magnesia Liq) 30 ml Q12H PRN PO 06/30/17 17:00 07/01/17 08:05 (Senokot) 17.2 mg Q12H PRN PO 06/30/17 17:00 (Dulcolax Supp) 10 mg DAILY PRN RECTAL 06/30/17 17:00 (Lactulose Liq) 30 ml DAILY PRN PO 06/30/17 17:00 07/01/17 20:46 (Peridex 0.12% Liq) 15 ml BID@08,20 MT 06/30/17 20:00 (Symbicort 160-4.5 Inh) 1 puff BID INH 06/30/17 21:00 07/01/17 20:46 Patient Own Medication PT OWN MED: (Tiotrop... DAILY INH 10/10/17 09:00 Future Hold Assessment and Plan Problem List: (1) Splenic hemorrhage ICD Code: D73.89 - Other diseases of spleen (2) Clear cell carcinoma of kidney ICD Code: C64.9 - Malignant neoplasm of unspecified kidney, except renal pelvis Assessment and Plan Hemoglobin trended down slowly yesterday. But most recent drop to 9.8 from 10.4 over 8 hour span I do not think of clinical significance. BP has been very good , most recent 130s. F/U on CBC this morning. ok with OOB, advancing diet when ok with other services. Will be out of town rest of week. discussed with patient and his . Available by phone if needed, My partner, Dr. Leiva, is aware of patient and will be covering. Appreciate other service input. Problem Qualifiers (1) Clear cell carcinoma of kidney: Qualified Codes: C64.2 - Malignant neoplasm of left kidney, except renal pelvis Gaurav Louise MD Jul 02, 2017 04:58
[2017-07-02 05:43] LABS: HEMATOCRIT 29.5 % (39.0-51.0); MEAN CELL VOLUME 88.4 FL (80.0-100.0); MEAN CORPUSCULAR HEMOGLOBIN 30.6 PG (27.0-34.0); MEAN CORPUSCULAR HGB CONC 34.6 % (32.0-36.0); PLATELET COUNT 176 TH/MM3 (150-450); RED BLOOD COUNT 3.34 MIL/MM3 (4.50-5.90); RED CELL DISTRIBUTION WIDTH 15.7 % (11.6-17.2); REVIEW FLAG FINAL; WHITE BLOOD COUNT 10.9 TH/MM3 (4.0-11.0)
[2017-07-02 06:12] LABS: BICARBONATE 25.9 MEQ/L (21.0-32.0)
[2017-07-02] MEDS: SODIUM CHLORIDE 0.9% FLUSH 10 ML FLUSH IV FLUSH SCH ×2 (07:19→20:17)
[2017-07-02] MEDS: CHLORHEXIDINE 0.12% (ORAL KIT) 15 ML CUP MT SCH ×2 (07:19→20:00)
[2017-07-02] MEDS: BUDESONIDE-FORMOTEROL 160/4.5 MCG INHALER INH SCH ×2 (07:19→21:00)
[2017-07-02] MEDS: PANTOPRAZOLE SODIUM 40 MG VIAL IV PUSH SCH (07:46)
[2017-07-02] MEDS: MAGNESIUM HYDROXIDE SUSP 30 ML CUP PO PRN (07:46)
[2017-07-02] MEDS: DOCUSATE SODIUM 50 MG/SENNA 8.6 MG TAB PO SCH ×2 (07:47→20:14)
--- NOTE | 2017-07-02 11:34 | HHI.PR ---
Subjective Remarks S/P recent left radical nephrectomy for clear cell carcinoma presented to ED with hypotension and found to be anemic with Hg down to 8 and splenic bleeding and hemoperitoneum per CT. He C/O no BM for several days with stool softeners and laxatives. Hg today is up above 10 and he is asymptomatic. Objective Vital Signs Date Time Temp Pulse Resp B/P (MAP) Pulse Ox O2 Delivery O2 Flow Rate FiO2 07/02/17 10:00 84 07/02/17 08:56 96 21 07/02/17 08:00 77 07/02/17 08:00 98.0 78 17 153/84 (107) 96 07/02/17 07:00 96 Room Air 07/02/17 06:00 74 07/02/17 04:00 98.7 71 21 131/81 (98) 96 07/02/17 04:00 71 07/02/17 02:00 72 07/02/17 00:00 78 07/02/17 00:00 98.8 78 15 139/82 (101) 94 07/01/17 22:00 84 07/01/17 20:34 95 21 07/01/17 20:00 98.0 76 25 132/83 (99) 96 07/01/17 20:00 76 07/01/17 19:00 96 Room Air 07/01/17 18:00 77 07/01/17 16:00 98.5 70 17 140/72 (94) 95 07/01/17 16:00 82 07/01/17 14:00 77 07/01/17 12:00 98.4 81 23 145/70 (95) 97 07/01/17 12:00 81 I/O 07/01/17 07/01/17 07/01/17 07/02/17 07/02/17 07/02/17 07:00 15:00 23:00 07:00 15:00 23:00 Intake Total 995 ml 860 ml 1284 ml Output Total 500 ml 600 ml 400 ml Balance 495 ml 260 ml 884 ml Intake Oral 240 ml IV Total 995 ml 860 ml 1044 ml Output Urine Total 500 ml 600 ml 400 ml # Bowel Movements 0 0 Result Diagram: 07/02/17 0509 07/02/17 0509 Objective Remarks Neuro - Alert and oriented Resp - CTA CV - RRR without murmur rub or gallop Abd - soft and nontender. Reduced BS present MS - No edema with FROM Medications and IVs Current Medications Medications (Trade) Dose Ordered Sig/[place] Route Start Time Stop Time Status Last Admin (NS Flush) 2 ml UNSCH PRN IV FLUSH 06/30/17 12:45 Sodium Chloride 1,000 ml @ 84 mls/hr [id number] IV 06/30/17 18:00 07/02/17 04:19 (NS Flush) 2 ml UNSCH PRN IV FLUSH 06/30/17 17:00 (NS Flush) 2 ml BID IV FLUSH 06/30/17 21:00 07/02/17 07:19 (Tylenol) 650 mg Q6H PRN PO 06/30/17 17:00 ([place] 5-325 Mg) 1 tab Q4H PRN PO 06/30/17 17:00 07/02/17 07:46 (Morphine Inj) 2 mg Q2H PRN IV PUSH 06/30/17 17:00 (Protonix Inj) 40 mg DAILY IV PUSH 07/01/17 09:00 07/02/17 07:46 (Zofran Inj) 4 mg Q6H PRN IV PUSH 06/30/17 17:00 07/02/17 02:58 (Duoneb Neb) 1 ampule Q6HR NEB INH 06/30/17 22:00 07/02/17 08:56 (Albuterol Neb) 2.5 mg Q2HR NEB PRN INH 06/30/17 17:00 Miscellaneous Information 1 Q361D XX 06/30/17 17:00 06/30/17 17:00 (Chlorhexidine 2% Cloth) 3 pack Taper DAILY@04 TOP 07/01/17 04:00 06/27/18 03:59 (Chlorhexidine 2% Cloth) 3 pack UNSCH PRN TOP 06/30/17 17:00 (Elaine-Colace) 1 tab BID PO 06/30/17 21:00 07/02/17 07:47 (Milk Of Magnesia Liq) 30 ml Q12H PRN PO 06/30/17 17:00 07/02/17 07:46 (Senokot) 17.2 mg Q12H PRN PO 06/30/17 17:00 07/02/17 07:47 (Dulcolax Supp) 10 mg DAILY PRN RECTAL 06/30/17 17:00 (Lactulose Liq) 30 ml DAILY PRN PO 06/30/17 17:00 07/01/17 20:46 (Peridex 0.12% Liq) 15 ml BID@08,20 MT 06/30/17 20:00 (Symbicort 160-4.5 Inh) 1 puff BID INH 06/30/17 21:00 07/02/17 07:19 Patient Own Medication PT OWN MED: (Tiotrop... DAILY INH 07/01/17 09:00 Future Hold Assessment and Plan Problem List: (1) Hypotension ICD Codes: I95.9 - Hypotension, unspecified Status: Resolved Plan: After 4 U PRBC and IV hydration, hypotension resolved. (2) Hemoperitoneum ICD Codes: K66.1 - Hemoperitoneum Status: Acute Plan: CT evidence of post op hemorrhage on adm (3) Postoperative hemorrhage of spleen following non-spleen procedure ICD Codes: D78.22 - Postprocedural hemorrhage of the spleen following other procedure Status: Resolved Plan: CT evidence of spleenic bleeding on admission (4) Acute blood loss anemia ICD Codes: D62 - Acute posthemorrhagic anemia Status: Resolved Plan: Resolved with 4 U PRBC Assessment and Plan Cont close monitoring and F/U surgery recommendations Problem Qualifiers (1) Hypotension: Qualified Codes: I95.9 - Hypotension, unspecified David Burnette Jul 02, 2017 11:34
--- NOTE | 2017-07-02 12:24 | HHI.CCPN ---
Subjective Remarks/Hospital Course This is a 67-year-old male. Date of admission 06/30/2017. 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 This is from 06/25. Results was a clear cell carcinoma pT1b, Nx Mx, patient presented [place] today complaining of lightheadedness and dizziness. He is also noted to have left shoulder pain. Patient was noted to be hypotensive with systolic blood pressure in the 50s. Denied with significant abdominal pain. Head CT revealed no acute intracranial findings. CT of the abdomen/ pelvis revealed a intraparenchymal splenic hematoma 11.5 x 11.3 x 14.2 cm. Hemoglobin 8. Surgery and urology were consulted. We are asked to admit the patient in ISC Patient has received 4 units PRBC stat. Patient's been seen by Dr. Bagley. Recommended conservative therapy with serial hemoglobins. Will be available to comes acutely hypotensive overnight. 07/01: Resting comfortably in bed. Normotensive. Hemoglobin slowly trending downward currently 10.4. Recheck at age pending. Abdominal pain control. Subjective 07/02: Resting comfortable in bed. Hemoglobin stable at 10. Okay to transfer to [facility] floor. Pain is controlled on current regimen. We'll advance that and get out of bed. Objective Vital Signs Date Time Temp Pulse Resp B/P (MAP) Pulse Ox O2 Delivery O2 Flow Rate FiO2 07/02/17 10:00 84 07/02/17 08:56 96 21 07/02/17 08:00 98.0 17 153/84 (107) 07/02/17 07:00 Room Air 06/30/17 20:05 2.00 Intake and Output 07/02/17 07/02/17 07/03/17 08:00 16:00 00:00 Intake Total 1284 ml Output Total 400 ml Balance 884 ml Result Diagram: 07/02/17 0509 07/02/17 0509 Other Results Microbiology Date/Time Source Procedure Growth Status 06/30/17 12:55 Blood Peripheral Aerobic Blood Culture - Preliminary NO GROWTH IN 2 DAYS Resulted 06/30/17 12:55 Blood Peripheral Anaerobic Blood Culture - Preliminary NO GROWTH IN 2 DAYS Resulted Objective Remarks GENERAL: 67-year-old male, critically ill currently resting in bed in no acute distress SKIN: Warm and dry. HEAD: Atraumatic. Normocephalic. EYES: Pupils equal and round about 3 mm bilaterally and reactive. No scleral icterus. No injection or drainage. ENT: No nasal bleeding or discharge. Mucous membranes pink and moist. NECK: Trachea midline. No JVD. CARDIOVASCULAR: Regular rate and rhythm. S1, S2. No S4. Without murmur RESPIRATORY: No accessory muscle use. Clear to auscultation. Breath sounds equal bilaterally. GASTROINTESTINAL: Abdomen soft, non-tender, protuberant. 4 Prior trocar scars midline and left upper quadrant are clean dry and intact.. MUSCULOSKELETAL: Extremities without significant peripheral edema. No obvious deformities. Left shoulder pain/referred NEUROLOGICAL: Awake and alert. No obvious cranial nerve deficits. Motor grossly within normal limits. Five out of 5 muscle strength in the arms and legs. Normal speech. PSYCHIATRIC: Appropriate mood and affect; insight and judgment normal. A/P Assessment and Plan Neuro/Psych: Acetaminophen for fever [place]/morphine for pain management CV: Hypertension Lactate 2.3 currently 1.6 Currently holding amlodipine/benazepril 10/20 one tablet twice a day for hypertension. Holding indapamide 2.5 mill grams by mouth daily Currently normal saline at 84 cc an hour. Discontinue today EKG revealed normal sinus rhythm. Normal MD, QRS and QT intervals. Resp: COPD/asthma Nasal cannula to maintain saturations greater than or equal to 92% Incentive spirometry while awake Home medications fluticasone/salmeterol 250/50 one inhalation twice a day substituted for Symbicort and tiotropium 1 inhalation daily. GI: Large left splenic intraparenchymal hematoma Hypoalbuminemia Evaluated by Dr. Bagley/general surgery and Dr. Louise/urology. No plans for surgical intervention at the present time. Will check CBC in a.m. Advance diet as tolerated : No indication for Samuels catheter Endo: Sliding-scale insulin if indicated to maintain euglycemia Renal: Clear cell carcinoma pT1x. Nx, Mx Status post robot-assisted left nephrectomy Dr. Louise consulted. Conservative management the present time. Creatinine currently within normal limits Monitor urine output Accurate I's and O's Heme: Acute blood loss anemia Leukocytosis Transfused 4 units PRBCs Hemoglobin currently 10.2 ID: Previously on cephalexin Monitor for infection MSK: PT evaluate and treat FEN: Hyponatremia currently normal Replace electrolytes as clinically indicated Access - Utilize peripheral IV. Central line if indicated Prophylaxis - GI - pantoprazole - DVT - SCD/holding pharmacological prophylaxis in light of large splenic hematoma Level II follow-up. Patient is stable from a critical care standpoint. Transfer to [facility]. Dr. Rain for follow-up. Erick Burt MD Jul 02, 2017 12:24
--- NOTE | 2017-07-02 15:38 | HHI.PR ---
Subjective Subjective Notes No complaints. Hgb basically stable at 10. Just had first regular meal. He is up in chair. Objective Vitals/I&O Vital Signs Date Time Temp Pulse Resp B/P (MAP) Pulse Ox O2 Delivery O2 Flow Rate FiO2 07/02/17 12:00 80 07/02/17 12:00 98.3 29 157/90 (112) 94 07/02/17 08:56 21 07/02/17 07:00 Room Air 06/30/17 20:05 2.00 Labs Laboratory Tests Test 07/01/17 19:53 07/02/17 05:09 Hemoglobin 9.8 10.2 Hematocrit 28.7 29.5 White Blood Count 10.9 Red Blood Count 3.34 Mean Corpuscular Volume 88.4 Mean Corpuscular Hemoglobin 30.6 Mean Corpuscular Hemoglobin Concent 34.6 Red Cell Distribution Width 15.7 Platelet Count 176 Mean Platelet Volume 7.1 Blood Urea Nitrogen 12 Creatinine 1.02 Random Glucose 90 Calcium Level 8.3 Sodium Level 134 Potassium Level 4.0 Chloride Level 102 Carbon Dioxide Level 25.9 Anion Gap 6 Estimat Glomerular Filtration Rate 73 Date/Time Source Procedure Growth Status 06/30/17 12:55 Blood Peripheral Aerobic Blood Culture - Preliminary NO GROWTH IN 2 DAYS Resulted 06/30/17 12:55 Blood Peripheral Anaerobic Blood Culture - Preliminary NO GROWTH IN 2 DAYS Resulted Radiology Last Impressions Head CT 06/30/171243 Signed Impressions: Service Date/Time: Friday, June 30, 2017 13:34 - CONCLUSION: 1. No acute intracranial abnormality. Oli Cole MD Chest X-Ray 06/30/171243 Signed Impressions: Service Date/Time: Friday, June 30, 2017 13:15 - CONCLUSION: 1. No acute abnormality or significant interval change. Oli Cole MD Abdomen/Pelvis CT 06/30/171243 Signed Impressions: Service Date/Time: Friday, June 30, 2017 13:37 - CONCLUSION: 1. Abnormal examination. Large intraparenchymal splenic hemorrhage with moderate hemoperitoneum. Consider CTA examination to evaluate for active hemorrhage as clinically warranted. 2. Status post left nephrectomy with upper limits of normal for postop day #7 postoperative free air and subcutaneous emphysema. Findings were personally discussed with Dr. Bee. Oli Cole MD Narrative Exam NAD, comfortable in bed Abd: soft, nontender, mild distention, inc c/d/i A/P Assessment and Plan 67-year-old male status post robot-assisted nephrectomy postop day 5 with splenic hematoma and hypotension requiring blood transfusion. Stable. CBC tomorrow am. Ok for out of bed. Regular diet. Joshua Bagley MD Jul 02, 2017 15:38
[2017-07-02] MEDS: LACTULOSE SYRUP 20 GM/30 ML CUP PO PRN (20:13)
[2017-07-03] MEDS: RESP: ALBUTEROL 2.5 MG/IPRATROPIUM 0.5 MG NEB (SCH) INH ×3 (03:21→16:00)
[2017-07-03] MEDS: ONDANSETRON HCL 4 MG/2 ML VIAL IV PUSH PRN ×2 (03:27→12:41)
[2017-07-03 04:10] VITALS: BP 154/83; PULSE 83; RESP 18; TEMP 98.8; O2SAT 96
[2017-07-03] MEDS: MORPHINE SULFATE 4 MG/ML INJ IV PUSH PRN ×3 (05:34→12:41)
[2017-07-03] MEDS: SODIUM CHLOR 0.9% 1000 ML INJ 1,000 ML IV SCH (05:36)
[2017-07-03 08:00] VITALS: BP 156/80; PULSE 85; PULSE 92; RESP 20; TEMP 99.4; O2SAT 95
[2017-07-03 08:23] LABS: HEMATOCRIT 29.4 % (39.0-51.0); MEAN CELL VOLUME 89.6 FL (80.0-100.0); MEAN CORPUSCULAR HEMOGLOBIN 30.4 PG (27.0-34.0); MEAN CORPUSCULAR HGB CONC 33.9 % (32.0-36.0); PLATELET COUNT 205 TH/MM3 (150-450); RED BLOOD COUNT 3.28 MIL/MM3 (4.50-5.90); RED CELL DISTRIBUTION WIDTH 15.5 % (11.6-17.2); REVIEW FLAG FINAL; WHITE BLOOD COUNT 12.6 TH/MM3 (4.0-11.0)
[2017-07-03 08:35] LABS: BICARBONATE 25.9 MEQ/L (21.0-32.0); POTASSIUM 4.2 MEQ/L (3.5-5.1)
[2017-07-03] MEDS ORDERED: PANTOPRAZOLE SOD 20 MG DELAYED RELEASE TAB PO SCH (09:00)
[2017-07-03] MEDS: DOCUSATE SODIUM 50 MG/SENNA 8.6 MG TAB PO SCH (09:44)
[2017-07-03] MEDS: MAGNESIUM HYDROXIDE SUSP 30 ML CUP PO PRN (09:50)
[2017-07-03] MEDS: BUDESONIDE-FORMOTEROL 160/4.5 MCG INHALER INH SCH (09:54)
--- NOTE | 2017-07-03 10:15 | HHI.PR ---
Subjective Remarks S/P recent left radical nephrectomy for clear cell carcinoma presented to ED with hypotension and found to be anemic with Hg down to 8 and splenic bleeding and hemoperitoneum per CT. He had 2 BMs yesterday and is hoping for D/C home soon. Hg today is stable at 10 and he is asymptomatic. He tellsme he had bad dreams after hydrocodone last night and has requested change to Tylenol [address] Thibodeaux discussed adding Lyrica to his regimen for the referred pain, but he declined the drug as he is worried about side effects. Objective Vital Signs Date Time Temp Pulse Resp B/P (MAP) Pulse Ox O2 Delivery O2 Flow Rate FiO2 07/03/17 08:00 99.4 92 20 156/80 (105) 95 07/03/17 04:10 98.8 83 18 154/83 (106) 96 07/02/17 23:22 97.6 83 18 140/78 (98) 95 07/02/17 22:00 Room Air 07/02/17 20:46 90 07/02/17 20:42 97.2 94 18 144/80 (101) 95 07/02/17 17:17 97.9 86 20 161/79 (106) 94 07/02/17 16:00 70 07/02/17 16:00 98.3 70 20 145/90 (108) 94 07/02/17 12:00 80 07/02/17 12:00 98.3 80 29 157/90 (112) 94 I/O 07/02/17 07/02/17 07/02/17 07/03/17 07/03/17 07/03/17 07:00 15:00 23:00 07:00 15:00 23:00 Intake Total 1284 ml 1000 ml 3083 ml Output Total 400 ml 1300 ml Balance 884 ml 1000 ml 1783 ml Intake Oral 240 ml 1400 ml IV Total 1044 ml 1000 ml 1683 ml Output Urine Total 400 ml 1300 ml # Bowel Movements 0 1 Result Diagram: 07/03/1774307/03/1744 Objective Remarks Neuro - Alert and oriented Resp - CTA CV - RRR without murmur rub or gallop Abd - soft and nontender. Reduced BS present MS - No edema with FROM Medications and IVs Current Medications Medications (Trade) Dose Ordered Sig/Galina Route Start Time Stop Time Status Last Admin (NS Flush) 2 ml UNSCH PRN IV FLUSH 06/30/17 12:45 Sodium Chloride 1,000 ml @ 84 mls/hr [id number] IV 06/30/17 18:00 07/03/17 05:36 (NS Flush) 2 ml UNSCH PRN IV FLUSH 06/30/17 17:00 (NS Flush) 2 ml BID IV FLUSH 06/30/17 21:00 07/02/17 20:17 (Tylenol) 650 mg Q6H PRN PO 06/30/17 17:00 (Morphine Inj) 2 mg Q2H PRN IV PUSH 06/30/17 17:00 07/03/17 05:34 (Zofran Inj) 4 mg Q6H PRN IV PUSH 06/30/17 17:00 07/03/17 03:27 (Duoneb Neb) 1 ampule Q6HR NEB INH 06/30/17 22:00 07/02/17 08:56 (Albuterol Neb) 2.5 mg Q2HR NEB PRN INH 06/30/17 17:00 Miscellaneous Information 1 Q361D XX 06/30/17 17:00 06/30/17 17:00 (Chlorhexidine 2% Cloth) 3 pack Taper DAILY@04 TOP 07/01/17 04:00 06/27/18 03:59 (Chlorhexidine 2% Cloth) 3 pack UNSCH PRN TOP 06/30/17 17:00 (Elaine-Colace) 1 tab BID PO 06/30/17 21:00 07/02/17 20:14 (Milk Of Magnesia Liq) 30 ml Q12H PRN PO 06/30/17 17:00 07/02/17 07:46 (Senokot) 17.2 mg Q12H PRN PO 06/30/17 17:00 07/02/17 07:47 (Dulcolax Supp) 10 mg DAILY PRN RECTAL 06/30/17 17:00 (Lactulose Liq) 30 ml DAILY PRN PO 06/30/17 17:00 07/02/17 20:13 (Peridex 0.12% Liq) 15 ml BID@08,20 MT 06/30/17 20:00 (Symbicort 160-4.5 Inh) 1 puff BID INH 06/30/17 21:00 07/02/17 07:19 Patient Own Medication PT OWN MED: (Tiotrop... DAILY INH 07/01/17 09:00 Future Hold (Protonix) 20 mg DAILY PO 07/03/17 09:00 (Tylenol-Codeine #3) 2 tab Q4H PRN PO 07/03/17 08:45 Assessment and Plan Problem List: (1) Hypotension ICD Codes: I95.9 - Hypotension, unspecified Status: Resolved Plan: After 4 U PRBC and IV hydration, hypotension resolved. (2) Hemoperitoneum ICD Codes: K66.1 - Hemoperitoneum Status: Acute Plan: CT evidence of post op hemorrhage on adm (3) Postoperative hemorrhage of spleen following non-spleen procedure ICD Codes: D78.22 - Postprocedural hemorrhage of the spleen following other procedure Status: Resolved Plan: CT evidence of spleenic bleeding on admission (4) Acute blood loss anemia ICD Codes: D62 - Acute posthemorrhagic anemia Status: Resolved Plan: Resolved with 4 U PRBC Assessment and Plan Cont close monitoring and F/U surgery recommendations Discussed Condition With Patient and spouse Discharge Planning Hopefully home tomorrow if surgery agrees. Problem Qualifiers (1) Hypotension: Qualified Codes: I95.9 - Hypotension, unspecified David Burnette Jul 03, 2017 10:15
[2017-07-03 10:52] VITALS: O2SAT 94
[2017-07-03] MEDS: ACETAMINOPHEN/CODEINE 300 MG/30 MG TAB PO PRN ×2 (10:58→15:10)
[2017-07-03 12:00] VITALS: BP 153/74; PULSE 90; RESP 20; TEMP 98.4; O2SAT 96
--- NOTE | 2017-07-03 12:19 | HHI.PR ---
Subjective Subjective Notes No complaints. Diogenes diet. Hg stable. Had BM. Ambulating. Objective Vitals/I&O Vital Signs Date Time Temp Pulse Resp B/P (MAP) Pulse Ox O2 Delivery O2 Flow Rate FiO2 07/03/17 10:52 94 21 07/03/17 08:00 85 07/03/17 08:00 99.4 20 156/80 (105) 07/03/17 08:00 Room Air 06/30/17 20:05 2.00 Labs Laboratory Tests Test 07/03/17 07:44 White Blood Count 12.6 Red Blood Count 3.28 Hemoglobin 10.0 Hematocrit 29.4 Mean Corpuscular Volume 89.6 Mean Corpuscular Hemoglobin 30.4 Mean Corpuscular Hemoglobin Concent 33.9 Red Cell Distribution Width 15.5 Platelet Count 205 Mean Platelet Volume 7.0 Blood Urea Nitrogen 12 Creatinine 0.97 Random Glucose 88 Calcium Level 8.5 Sodium Level 133 Potassium Level 4.2 Chloride Level 101 Carbon Dioxide Level 25.9 Anion Gap 6 Estimat Glomerular Filtration Rate 78 Date/Time Source Procedure Growth Status 06/30/17 12:55 Blood Peripheral Aerobic Blood Culture - Preliminary NO GROWTH IN 3 DAYS Resulted 06/30/17 12:55 Blood Peripheral Anaerobic Blood Culture - Preliminary NO GROWTH IN 3 DAYS Resulted Radiology Last Impressions Head CT 06/30/171243 Signed Impressions: Service Date/Time: Friday, June 30, 2017 13:34 - CONCLUSION: 1. No acute intracranial abnormality. Oli Cole MD Chest X-Ray 06/30/171243 Signed Impressions: Service Date/Time: Friday, June 30, 2017 13:15 - CONCLUSION: 1. No acute abnormality or significant interval change. Oli Cole MD Abdomen/Pelvis CT 06/30/171243 Signed Impressions: Service Date/Time: Friday, June 30, 2017 13:37 - CONCLUSION: 1. Abnormal examination. Large intraparenchymal splenic hemorrhage with moderate hemoperitoneum. Consider CTA examination to evaluate for active hemorrhage as clinically warranted. 2. Status post left nephrectomy with upper limits of normal for postop day #7 postoperative free air and subcutaneous emphysema. Findings were personally discussed with Dr. Bee. Oli Cole MD Narrative Exam NAD, Abd: soft, nontender, mild distention, inc c/d/i A/P Assessment and Plan 67-year-old male status post robot-assisted nephrectomy with splenic hematoma and hypotension requiring blood transfusion. Clear for dc home. CBC in one week prior to seeing me. Call if incr abdominal pain, fevers, dizziness or present to ED. Joshua Bagley MD Jul 03, 2017 12:19
[2017-07-03 16:00] VITALS: BP 139/80; PULSE 77; RESP 20; TEMP 98; O2SAT 99
--- NOTE | 2017-07-03 16:12 | HHI.DS ---
Discharge Summary Admission Date Jun 30, 2017 at 14:37 Discharge Date: Jul 03, 2017 Admitting Diagnosis SPLENIC LAC (1) Acute blood loss anemia Diagnosis: Principal ICD Codes: D62 - Acute posthemorrhagic anemia Status: Resolved (2) Gastroesophageal reflux disease Diagnosis: Principal ICD Codes: K21.9 - Gastro-esophageal reflux disease without esophagitis Status: Chronic (3) Leukocytosis Diagnosis: Principal ICD Codes: D72.829 - Elevated white blood cell count, unspecified Status: Resolved (4) Clear cell carcinoma of kidney Diagnosis: Principal ICD Codes: C64.9 - Malignant neoplasm of unspecified kidney, except renal pelvis Status: Resolved (5) COPD (chronic obstructive pulmonary disease) Diagnosis: Principal ICD Codes: J44.9 - Chronic obstructive pulmonary disease, unspecified Status: Chronic (6) Hypertension Diagnosis: Principal ICD Codes: I10 - Essential (primary) hypertension Status: Chronic (7) Symptomatic anemia Diagnosis: Principal ICD Codes: D64.9 - Anemia, unspecified Status: Acute (8) Postoperative hemorrhage of spleen following non-spleen procedure Diagnosis: Principal ICD Codes: D78.22 - Postprocedural hemorrhage of the spleen following other procedure Status: Resolved (9) Splenic hemorrhage Diagnosis: Principal ICD Codes: D73.89 - Other diseases of spleen (10) Hypotension Diagnosis: Principal ICD Codes: I95.9 - Hypotension, unspecified Status: Resolved (11) Hemoperitoneum Diagnosis: Principal ICD Codes: K66.1 - Hemoperitoneum Status: Acute Brief History He presented to the ED after D/C home following a radical robotic assisted left nephrectomy with hypotension. He was found to have a spleen laceration and was transfused and monitored closely. The hg stabilized and the bleeding has not recurred. He was cleared by surgery today for D/C home. We will F/U with him in 1-2 weeks and he will see Urology as scheduled. CBC/BMP: 07/03/17 0744 07/03/17 0744 Significant Findings Laboratory Tests Test 06/30/17 18:30 06/30/17 19:54 06/30/17 22:15 07/01/17 01:14 Hemoglobin 12.6 GM/DL (13.0-17.0) 11.2 GM/DL (13.0-17.0) Hematocrit 37.4 % (39.0-51.0) 31.6 % (39.0-51.0) Urine Mucus FEW /lpf (OCC) Test 07/01/17 04:20 07/01/17 11:18 07/01/17 19:53 07/02/17 05:09 Red Blood Count 3.84 MIL/MM3 (4.50-5.90) 3.34 MIL/MM3 (4.50-5.90) Hemoglobin 11.4 GM/DL (13.0-17.0) 10.4 GM/DL (13.0-17.0) 9.8 GM/DL (13.0-17.0) 10.2 GM/DL (13.0-17.0) Hematocrit 33.4 % (39.0-51.0) 30.0 % (39.0-51.0) 28.7 % (39.0-51.0) 29.5 % (39.0-51.0) Total Protein 5.8 GM/DL (6.4-8.2) Albumin 2.6 GM/DL (3.4-5.0) Estimat Glomerular Filtration Rate 59 ML/MIN (>89) 73 ML/MIN (>89) Calcium Level 8.3 MG/DL (8.5-10.1) Sodium Level 134 MEQ/L (136-145) Test 07/03/17 07:44 White Blood Count 12.6 TH/MM3 (4.0-11.0) Red Blood Count 3.28 MIL/MM3 (4.50-5.90) Hemoglobin 10.0 GM/DL (13.0-17.0) Hematocrit 29.4 % (39.0-51.0) Sodium Level 133 MEQ/L (136-145) Estimat Glomerular Filtration Rate 78 ML/MIN (>89) PE at Discharge Neuro - Alert and oriented Resp - CTA CV - RRR without murmur rub or gallop Abd - soft and nontender. Reduced BS present MS - No edema with FROM Hospital Course He presented to the ED after D/C home following a robotic assisted radical left nephrectomy. He was found to hypotensive and was hydrated and transfused 4 U PRBC due to low hg of 8. He stabilized and was monitored closely and di not have further episodes of bleeding or low BP. He has been cleared for D/C home by surgery and will F/U as directed. We will see him in our office in 1-2 weeks. Pt Condition on Discharge: Stable Discharge Disposition: Discharge Home Discharge Instructions DIET: Follow Instructions for: Heart Healthy Diet Activities you can perform: Full Weight Bearing Activities to avoid: Contact Sports, Lifting/Bending, Strenuous Activity Follow up Referrals: Surgical - 1 Week with Joshua Bagley MD New Orders: CBC WITH DIFF - 1 Week David Burnette Jul 03, 2017 16:12
== END 2017-07-03 18:06 | disposition home or self-care (01) | DRG 919 ==
LOC: PHED 12:33 → PHEDA 14:37 → N03B 15:56 → N04B 07-02 17:17
PROVIDERS: ADMIT Internal Medicine; ATTEND Internal Medicine
PROC: 30233N1 Transfusion of Nonautologous Red Blood Cells into Peripheral Vein, Percutaneous Approach (ICD-10-PCS; principal; 2017-06-30)
DX: D78.12 Accidental puncture and laceration of the spleen during other procedure (principal); K66.1 Hemoperitoneum; I95.9 Hypotension, unspecified; E87.1 Hypo-osmolality and hyponatremia; J44.9 Chronic obstructive pulmonary disease, unspecified; E88.09 Other disorders of plasma-protein metabolism, not elsewhere classified; C64.2 Malignant neoplasm of left kidney, except renal pelvis; D62 Acute posthemorrhagic anemia; K21.9 Gastro-esophageal reflux disease without esophagitis; D72.829 Elevated white blood cell count, unspecified; R55 Syncope and collapse; I10 Essential (primary) hypertension; Y83.9 Surgical procedure, unspecified as the cause of abnormal reaction of the patient, or of later complication, without mention of misadventure at the time of the procedure; Z85.528 Personal history of other malignant neoplasm of kidney; Z90.5 Acquired absence of kidney
CPT/HCPCS: 36430; 70450; 71010; 74176; 80048; 80053; 81001; 83605; 83735; 84100; 84484; 85007; 85014; 85018; 85025; 85027; 85610; 85730; 86850; 86900; 86901; 86920; 87040; 87641; 93005; 94150; 94640; 94664; 96360; C9113; J2270; J2405; J7030; P9016